=== PATIENT | male | born 1985 | race Hispanic/Latino ===

== ENCOUNTER 2019-03-21 20:32 | Emergency (ER) | payer SELFPAY ==
[2019-03-21 21:41] LABS: Basophils % 1.3 % (0-1.3); Eosinophils % 3.6 % (0-4.4); Hematocrit 45.8 % (39.6-49.0); Lymphocytes % 47.8 % (15.3-44.8); RBC Red Blood Cell Count 5.08 M/uL (4.33-5.43)
[2019-03-21 22:04] LABS: BUN Blood Urea Nitrogen 12 mg/dL (7-18); Bicarbonate 34 mmol/L (21-32); Glucose Level 98 mg/dL (74-106); Potassium 3.7 mmol/L (3.5-5.1); Sodium Level 142 mmol/L (136-145); Troponin (Emerg Dept Use Only) < 0.02 ng/mL (0.0-0.045)
--- NOTE | 2019-03-21 22:58 | ER ---
Nurse's Notes [facility] Name: Erwin Tolentino Jr Age: 33 yrs Sex: Male : 1985 Arrival Date: 03/21/2019 Time: 20:34 Bed 24 Private MD: Diagnosis: Chest pain, unspecified Presentation: 03/21 20:40 Presenting complaint: Patient states: I had a real bad headache and went on a walk, la1 when I came back I felt a pinch in my chest and then my left arm started feeling numb and tingly. Pt reports his arm feels like it is coming back from being numb like after you fell asleep on it and wake up. Denies chest pain. Transition of care: patient was not received from another setting of care. Onset of symptoms was March 21, 2019. Risk Assessment: Do you want to hurt yourself or someone else? Patient reports no desire to harm self or others. Initial Sepsis Screen: Does the patient meet any 2 criteria? No. Patient's initial sepsis screen is negative. Does the patient have a suspected source of infection? No. Patient's initial sepsis screen is negative. Care prior to arrival: None. 20:40 Method Of Arrival: Ambulatory la1 20:40 Acuity: BHAVIK 3 la1 Historical: - Allergies: 20:42 No Known Allergies; la1 - PMHx: 20:42 None; la1 - Immunization history:: Adult Immunizations up to date. - Social history:: Smoking status: Patient/guardian denies using tobacco. - Ebola Screening: : No symptoms or risks identified at this time. Screenin:28 Abuse screen: Denies threats or abuse. Denies injuries from another. Nutritional ca1 screening: No deficits noted. Tuberculosis screening: No symptoms or risk factors identified. Fall Risk IV access (20 points). Assessment: 21:10 General: Appears comfortable, well groomed, Behavior is calm, cooperative. Pain:. cr4 Neuro: Level of Consciousness is awake, alert, obeys commands, Oriented to person, place, time, situation, Appropriate for age Entertainment Reporter are equal bilaterally Moves all extremities. Gait is steady, Speech is normal, Pupils are PERRLA, Reports headache frontal area, since 1500 Denies weakness blurred vision dizziness, numbness. Neuro: Reports reported having numbness to left arm that stopped about 20 minutes ago.. Cardiovascular: Reports Denies chest pain, Heart tones S1 S2 Capillary refill < 3 seconds Patient's skin is warm and dry. Pulses are all present. Edema is absent. Rhythm is regular Chest pain reported chesp pain earlier today that radiated to left chest and radiated to left arm.. Respiratory: Airway is patent Trachea midline Respiratory effort is even, unlabored, Respiratory pattern is regular, Breath sounds are diminished bilaterally. GI: Patient currently denies nausea, vomiting. : Denies burning with urination. EENT: No deficits noted. Derm: No deficits noted. 22:28 Pain: Pain does not radiate. Pain began around 1500 today. ca1 22:29 Reassessment: Patient appears in no apparent distress at this time. Patient and/or ca1 family updated on plan of care and expected duration. Pain level reassessed. Patient is alert, oriented x 3, equal unlabored respirations, skin warm/dry/pink. 23:23 Reassessment: Patient appears in no apparent distress at this time. Patient is alert, ca1 oriented x 3, equal unlabored respirations, skin warm/dry/pink. Patient states feeling better. Vital Signs: 20:42 BP 150 / 98; Pulse 69; Resp 16; Temp 97.5; Pulse Ox 98% on R/A; Weight 93.89 kg; Height la1 5 ft. 9 in. (175.26 cm); 22:29 BP 134 / 96; Pulse 65; Resp 16 S; Pulse Ox 100% on R/A; ca1 23:23 BP 130 / 95; Pulse 68; Resp 17 S; Pulse Ox 98% on R/A; ca1 20:42 Body Mass Index 30.57 (93.89 kg, 175.26 cm) la1 ED Course: 20:34 Patient arrived in ED. do 20:40 Arm band placed on left wrist. EKG completed in triage. Results shown to MD. la1 20:41 Triage completed. la1 21:10 Jose Negron MD is Attending Physician. gs 21:32 XRAY Chest (1 view) In Process Unspecified. EDMS 21:32 Initial lab(s) drawn, by me, sent to lab. Inserted saline lock: 20 gauge in right lt1 antecubital area, using aseptic technique. 21:33 Basic Metabolic Panel Sent. lt1 21:33 CBC with Diff Sent. lt1 21:33 Troponin (emerg Dept Use Only) Sent. lt1 22:28 Delmy Combs, RN is Primary Nurse. ca1 22:28 Patient has correct armband on for positive identification. tooler on. Pulse ca1 ox on. NIBP on. Warm blanket given. 22:28 No provider procedures requiring assistance completed. Patient maintains SpO2 ca1 saturation greater than 95% on room air. 22:58 Nida Calvin DO is Referral Physician. gs 23:24 IV discontinued, intact, bleeding controlled, No redness/swelling at site. Pressure ca1 dressing applied. Administered Medications: No medications were administered Outcome: :58 Discharge ordered by MD. 23:24 Discharged to home ambulatory. ca1 23:24 Condition: stable 23:24 Discharge instructions given to patient, Instructed on discharge instructions, follow up and referral plans. Demonstrated understanding of instructions, follow-up care. 23:24 Patient left the ED. ca1 Signatures: Dispatcher [employer] EDMS Renetta Dennis RN RN cr4 Jericho Lemon RN RN susannah1 María Cage Gregory, MD MD Delmy Combs, RN RN Zainab Van lt1 Corrections: (The following items were deleted from the chart) 22:29 22:28 Pain: Pain began ca1 ca1
--- NOTE | 2019-03-21 22:59 | EDPHYS ---
Physician Documentation [facility] Name: Erwin Tolentino Jr Age: 33 yrs Sex: Male : 1985 Arrival Date: 03/21/2019 Time: 20:34 Bed 24 Private MD: ED Physician Jose Negron HPI: 03/21 22:51 This 33 yrs old Male presents to ER via Ambulatory with complaints of Chest gs Pain. 22:51 The patient or guardian reports chest pain that is located primarily in the anterior gs chest wall. The pain does not radiate. Associated signs and symptoms: Pertinent negatives: shortness of breath. The chest pain is described as a heaviness. Duration: The patient or guardian reports a single episode, that is now resolved. Modifying factors: The symptoms are alleviated by nothing. the symptoms are aggravated by nothing. Severity of pain: At its worst the pain was moderate in the emergency department the pain has resolved. The patient has experienced similar episodes in the past, a few times. SAYS EARLIER IN THE AFTERNOON STARTED TO GET A HEADACHE WAS RELIEVED WITH ANALGESICS. LATER STARTED WITH CHEST PAIN TINGLING IN ARM SOME CHANGE WITH MOVEMENT. Historical: - Allergies: 20:42 No Known Allergies; la1 - PMHx: 20:42 None; la1 - Immunization history:: Adult Immunizations up to date. - Social history:: Smoking status: Patient/guardian denies using tobacco. - Ebola Screening: : No symptoms or risks identified at this time. ROS: 22:51 All other systems are negative. gs Exam: 22:51 Head/Face: Normocephalic, atraumatic. Eyes: Pupils equal round and reactive to light, gs extra-ocular motions intact. Lids and lashes normal. Conjunctiva and sclera are non-icteric and not injected. Cornea within normal limits. Periorbital areas with no swelling, redness, or edema. ENT: Nares patent. No nasal discharge, no septal abnormalities noted. Tympanic membranes are normal and external auditory canals are clear. Oropharynx with no redness, swelling, or masses, exudates, or evidence of obstruction, uvula midline. Mucous membranes moist. Neck: Trachea midline, no thyromegaly or masses palpated, and no cervical lymphadenopathy. Supple, full range of motion without nuchal rigidity, or vertebral point tenderness. No Meningismus. Chest/axilla: Normal chest wall appearance and motion. Nontender with no deformity. No lesions are appreciated. Cardiovascular: Regular rate and rhythm with a normal S1 and S2. No gallops, murmurs, or rubs. Normal PMI, no JVD. No pulse deficits. Respiratory: Lungs have equal breath sounds bilaterally, clear to auscultation and percussion. No rales, rhonchi or wheezes noted. No increased work of breathing, no retractions or nasal flaring. Abdomen/GI: Soft, non-tender, with normal bowel sounds. No distension or tympany. No guarding or rebound. No evidence of tenderness throughout. Back: No spinal tenderness. No costovertebral tenderness. Full range of motion. Skin: Warm, dry with normal turgor. Normal color with no rashes, no lesions, and no evidence of cellulitis. MS/ Extremity: Pulses equal, no cyanosis. Neurovascular intact. Full, normal range of motion. Neuro: Awake and alert, GCS 15, oriented to person, place, time, and situation. Cranial nerves II-XII grossly intact. Motor strength 5/5 in all extremities. Sensory grossly intact. Cerebellar exam normal. Normal gait. 22:51 Constitutional: The patient appears alert, awake. 22:51 ECG was reviewed by the Attending Physician. Vital Signs: 20:42 BP 150 / 98; Pulse 69; Resp 16; Temp 97.5; Pulse Ox 98% on R/A; Weight 93.89 kg; Height la1 5 ft. 9 in. (175.26 cm); 22:29 BP 134 / 96; Pulse 65; Resp 16 S; Pulse Ox 100% on R/A; ca1 23:23 BP 130 / 95; Pulse 68; Resp 17 S; Pulse Ox 98% on R/A; ca1 20:42 Body Mass Index 30.57 (93.89 kg, 175.26 cm) la1 MDM: 21:15 Patient medically screened. gs 22:51 Differential diagnosis: abnormal EKG, coronary artery disease chest wall pain. Data gs reviewed: vital signs, nurses notes, lab test result(s), EKG, radiologic studies. Counseling: I had a detailed discussion with the patient and/or guardian regarding: the presence of at least one elevated blood pressure reading (>120/80) during this emergency department visit, the need for outpatient follow up. Response to treatment: the patient's symptoms have markedly improved after treatment, the patient's symptoms have resolved after treatment, the patient's pain is gone, the patient's condition has returned to base line. Special discussion: I have referred the patient to see his PCP for further evaluation of high blood pressure. 03/21 21:15 Order name: Basic Metabolic Panel 07 21:15 Order name: CBC with Diff 03/21 21:15 Order name: Troponin (emerg Dept Use Only) 03/21 21:16 Order name: Basic Metabolic Panel; Complete Time: 22:44 EDMS 03/21 21:16 Order name: CBC with Automated Diff; Complete Time: 22:44 EDMS 03/21 21:16 Order name: Troponin (Emerg Dept Use Only); Complete Time: 22:44 EDMS 03/21 21:15 Order name: XRAY Chest (1 view) 07 21:15 Order name: EKG; Complete Time: 21:16 03/21 21:15 Order name: Cardiac monitoring; Complete Time: 21:31 03/21 21:15 Order name: EKG - Nurse/Tech; Complete Time: 21:24 07 21:15 Order name: IV Saline Lock; Complete Time: 21:32 03/21 21:15 Order name: Labs collected and sent; Complete Time: 21:32 03/21 21:15 Order name: O2 Per Protocol; Complete Time: 21:32 03/21 21:15 Order name: O2 Sat Monitoring; Complete Time: 21:32 gs EC:51 Rate is 66 beats/min. Rhythm is regular. TN interval is normal. QRS interval is normal. gs QT interval is normal. T waves are Normal. No ST changes noted. Clinical impression: Normal ECG. Interpreted by me. Administered Medications: No medications were administered Disposition: 03/21/19 22:58 Discharged to Home. Impression: Chest pain, unspecified. - Condition is Stable. - Discharge Instructions: Nonspecific Chest Pain, Managing Your Hypertension. - Medication Reconciliation Form, Thank You Letter, Antibiotic Education, Prescription Opioid Use form. - Follow up: Private Physician; When: 2 - 3 days; Reason: Re-evaluation by your physician. Follow up: Calvin, Kamla-Paresh, DO; When: 2 - 3 days; Reason: Re-evaluation by your physician. Signatures: Dispatcher [employer] EDMS Jericho Lemon RN RN la1 Jose Negron MD MD gs Garret, Delmy RN RN ca1 Corrections: (The following items were deleted from the chart) 22:58 22:58 03/21/2019 22:58 Discharged to Home. Impression: Chest pain, unspecified. gs Condition is Stable. Forms are Medication Reconciliation Form, Thank You Letter, Antibiotic Education, Prescription Opioid Use. Follow up: Private Physician; When: 2 - 3 days; Reason: Re-evaluation by your physician. gs 23:24 22:58 03/21/2019 22:58 Discharged to Home. Impression: Chest pain, unspecified. ca1 Condition is Stable. Discharge Instructions: Nonspecific Chest Pain, Managing Your Hypertension. Forms are Medication Reconciliation Form, Thank You Letter, Antibiotic Education, Prescription Opioid Use. Follow up: Private Physician; When: 2 - 3 days; Reason: Re-evaluation by your physician. Follow up: Nida Calvin; When: 2 - 3 days; Reason: Re-evaluation by your physician. gs
--- NOTE | 2019-03-22 09:57 | EKG ---
Test Date: 2019-03-21 Test Time: 20:39:54 Staff Mechanical Engineer: LA MEASUREMENT RESULTS: Intervals: Rate: 66 TN: 128 QRSD: 84 QT: 396 QTc: 415 [place]: P: 38 TN: 128 QRS: 21 T: 32 INTERPRETIVE STATEMENTS: Normal sinus rhythm Normal ECG No previous ECG available for comparison Electronically Signed On 03-22-19 09:56:45 CDT by Connor Judd
--- NOTE | 2019-03-22 12:14 | RAD REPORT ---
EXAM DESCRIPTION: RAD - Chest Single View - 03/21/2019 9:34 pm CLINICAL HISTORY: CHEST PAIN Chest pain. COMPARISON: <Comparisons> FINDINGS: Portable technique limits examination quality. The lungs are grossly clear. The heart is normal in size. No displaced fractures. IMPRESSION: No acute intrathoracic process suspected.
== END 2019-03-21 23:24 | disposition home or self-care (01) ==
LOC: ER 20:32
DX: R07.9 Chest pain, unspecified (principal)
CPT/HCPCS: 36415; 71045; 80048; 84484; 85025; 93005; 99285

== ENCOUNTER 2021-02-10 11:54 | Emergency (ER) | payer SELFPAY ==
--- OUTSIDE RECORDS SUMMARY | 2021-02-10 11:57 | XMS REPORT | Continuity of Care Document ---
:1985 Author Organization [facility] t Address [address] [place] [address] Care Team Providers Name Role Phone Lab, Fam Pob I Attending Clinician Unavailable Doctor Unassigned, Name Attending Clinician Unavailable Problems This patient has no known problems. Allergies, Adverse Reactions, Alerts This patient has no known allergies or adverse reactions. Medications This patient has no known medications. Procedures This patient has no known procedures. Encounters Start End Encounter Admission Attending Care Care Encounter Source Date/Time Date/Time Type Type Clinicians Facility Department ID 2021-02-03 2021-02-03 Laboratory Lab, [facility] [id number] 17:01:56 17:21:56 Only Fam Pob I Health [id number] [place] [id number] [facility] [id number] [address] 2021-02-03 2021-02-03 Orders Doctor VITOR [id number] 00:00:00 00:00:00 Only UnassignedEFE [id number] [place] [facility] [id number] Results This patient has no known results.
--- NOTE | 2021-02-10 13:21 | RAD REPORT ---
EXAM DESCRIPTION: RAD - Chest Single View - 02/10/2021 1:09 pm CLINICAL HISTORY: Congestion;Cough Chest pain. COMPARISON: Chest Single View dated 03/21/2019 FINDINGS: Portable technique limits examination quality. Mild bilateral interstitial lung opacities are present suspicious for bronchitis/infection. The heart is normal in size. No displaced fractures.
[2021-02-10 13:49] LABS: Absolute Lymphocytes (CBC) 1.1 K/uL (0.7-4.9); Basophils % 0.7 % (0-1.3); Lymphocytes % 27.6 % (15.3-44.8); MPV 8.4 fL (7.6-11.3); RBC Red Blood Cell Count 4.88 M/uL (4.33-5.43)
[2021-02-10] MEDS ORDERED: METHYLPREDNISOLONE 125 MG INJ ONE (14:24)
[2021-02-10] MEDS ORDERED: ALBUTEROL INHALER 60 PUFF/8 GM IH ONE (14:25)
[2021-02-10 14:32] LABS: Potassium 4.1 mmol/L (3.5-5.1)
[2021-02-10] MEDS ORDERED: BENZONATATE 100 MG CAP PO ONE (14:56)
[2021-02-10] MEDS ORDERED: AZITHROMYCIN 250 MG TAB ONE (14:57)
[2021-02-10] MEDS ORDERED: CEFTRIAXONE/SWI 1gm 1 GM/10 ML SYR ONE (14:57)
--- NOTE | 2021-02-10 15:59 | RAD REPORT ---
EXAM DESCRIPTION: CT - Chest For Pe Angio - 02/10/2021 3:47 pm CLINICAL HISTORY: Chest pain. r/o pe,covid positive pt COMPARISON: No comparisons TECHNIQUE: CT angiogram of the pulmonary arteries was performed with MIP. All CT scans are performed using dose optimization technique as appropriate and may include automated exposure control or mA/KV adjustment according to patient size. FINDINGS: No evidence of pulmonary thromboembolism. No acute aortic finding demonstrated. Moderate areas of alveolar and interstitial lung opacities bilaterally, greatest in the lower lobes n oted. No significant pericardial or pleural fluid. No concerning bony finding. IMPRESSION: No evidence of pulmonary thromboembolism. Moderate areas of alveolar and interstitial lung opacities bilaterally, greatest in the lower lobes. This is compatible with underlying COVID-19 infection.
--- NOTE | 2021-02-10 16:09 | ER ---
Nurse's Notes [facility] Name: Erwin Tolentino Jr Age: 35 yrs Sex: Male : 1985 Arrival Date: 02/10/2021 Time: 11:55 Bed 4 Private MD: Diagnosis: COVID Pneumonia Presentation: 02/10 12:04 Chief complaint: Patient states: Slight cough x 1 week then 4 days ago noticed trace jl7 blood in sputum, reports mild SOB and chest is sore from coughing. Coronavirus screen: Client denies travel out of the [place] in the last 14 days. congestion, cough unrelated to allergies, Client presents with at least one sign or symptom that may indicate coronavirus-19. Standard/surgical mask placed on the client. Provider contacted for isolation considerations. Ebola Screen: No symptoms or risks identified at this time. Initial Sepsis Screen: Does the patient meet any 2 criteria? No. Patient's initial sepsis screen is negative. Does the patient have a suspected source of infection? No. Patient's initial sepsis screen is negative. Risk Assessment: Do you want to hurt yourself or someone else? Patient reports no desire to harm self or others. Onset of symptoms was February 07, 2021. Care prior to arrival: None. 12:04 Method Of Arrival: Ambulatory [facility] 12:04 Acuity: BHAVIK 3 jl7 Historical: - Allergies: 12:06 No Known Allergies; jl7 - Home Meds: 12:06 None [Active]; jl7 - PMHx: 12:06 None; jl7 - PSHx: 12:06 None; jl7 - Immunization history:: Adult Immunizations unknown. - Social history:: Smoking status: Patient denies any tobacco usage or history of. Screenin:36 Abuse screen: Denies threats or abuse. Nutritional screening: No deficits noted. em Tuberculosis screening: No symptoms or risk factors identified. Fall Risk None identified. Assessment: 12:32 General: Appears in no apparent distress. comfortable, Behavior is calm, cooperative. em Pain: Denies pain. Neuro: Level of Consciousness is awake, alert, obeys commands, Oriented to person, place, time, situation, Appropriate for age. Cardiovascular: Reports shortness of breath, Denies chest pain, Capillary refill < 3 seconds Patient's skin is warm and dry. Rhythm is regular. Respiratory: Reports shortness of breath at rest cough that is productive, Airway is patent Respiratory effort is even, unlabored, Respiratory pattern is regular, symmetrical, Breath sounds are clear bilaterally. GI: Abdomen is flat, Reports diarrhea, Patient currently denies nausea, vomiting. Derm: Skin is intact, is healthy with good turgor, Skin is pink, warm \T\ dry. Musculoskeletal: Capillary refill < 3 seconds, Range of motion: intact in all extremities. 14:21 Reassessment: pts sister updated via phone with pts permission. tr6 14:57 Reassessment: Patient appears in no apparent distress at this time. Patient and/or em family updated on plan of care and expected duration. Pain level reassessed. Patient is alert, oriented x 3, equal unlabored respirations, skin warm/dry/pink. 15:41 Reassessment: pt transferred to CT via stretcher. tr6 15:51 Reassessment: returned from CT via wheelchair. em 16:02 Reassessment: reports cough is not getting better, Dr. Ramos notified, received VO em for 5 mg Tussionex PO x 1. 16:35 Reassessment: Patient appears in no apparent distress at this time. Patient and/or em family updated on plan of care and expected duration. Pain level reassessed. Patient is alert, oriented x 3, equal unlabored respirations, skin warm/dry/pink. Patient states feeling better. Vital Signs: 09:00 BP 122 / 52; Pulse 73; Resp 20; Pulse Ox 100% on R/A; tr6 10:00 BP 141 / 66; Pulse 75; Resp 20; Pulse Ox 100% on R/A; tr6 12:04 BP 127 / 74; Pulse 105; Resp 19; Temp 98.8; Pulse Ox 95% on R/A; Weight 94.35 kg; jl7 Height 5 ft. 9 in. (175.26 cm); Pain 0/10; 14:42 BP 117 / 77; Pulse 104; Resp 20; Pulse Ox 95% on R/A; em 16:15 BP 124 / 68; Pulse 98; Resp 20; Pulse Ox 94% on R/A; em 12:04 Body Mass Index 30.72 (94.35 kg, 175.26 cm) [facility] 14:42 after ambulating about 40 feet em ED Course: 11:55 Patient arrived in ED. am2 12:06 Triage completed. jl7 12:06 Arm band placed on right wrist. jl7 12:12 Michele Ramos MD is Attending Physician. kdr 12:28 Damon Page, RN is Primary Nurse. em 12:36 Patient has correct armband on for positive identification. Bed in low position. Call em light in reach. Pulse ox on. NIBP on. 12:39 Inserted saline lock: 18 gauge in left hand, using aseptic technique. Blood collected. tr6 13:09 CXR XRAY In Process Unspecified. EDMS 15:47 CT Chest For PE Angio In Process Unspecified. EDMS 16:45 No provider procedures requiring assistance completed. IV discontinued, intact, em bleeding controlled, No redness/swelling at site. Pressure dressing applied. Administered Medications: 14:05 Drug: Albuterol HFA Inhaler 2 puffs Route: Inhalation; em 14:55 Follow up: Response: No adverse reaction; Marked relief of symptoms em 14:07 Drug: SOLU-Medrol (methylPrednisoLONE) 125 mg Route: IVP; Site: left hand; em 14:55 Follow up: Response: No adverse reaction em 14:39 Drug: Rocephin - (cefTRIAXone) 1 grams Route: IVPB; Infused Over: 30 mins; Site: left em hand; 16:17 Follow up: Response: No adverse reaction; IV Status: Completed infusion; IV Intake: 10mlem 14:49 Drug: Tessalon Perle (benzonatate) 200 mg Route: PO; em 16:17 Follow up: Response: No adverse reaction em 14:49 Drug: Zithromax (azithromycin) 500 mg Route: PO; em 16:17 Follow up: Response: No adverse reaction em 16:13 Drug: Tussionex Pennkinetic ER (chlorpheniramine-hydrocodone) 5 ml Route: PO; em 16:30 Follow up: Response: No adverse reaction; Marked relief of symptoms em Intake: 16:17 IV: 10ml; Total: 10ml. em Outcome: 16:09 Discharge ordered by . kdr 16:45 Discharged to home ambulatory. em 16:45 Condition: stable 16:45 Discharge instructions given to patient, Instructed on discharge instructions, follow up and referral plans. medication usage, Demonstrated understanding of instructions, follow-up care, medications, Prescriptions given X 2. 16:46 Patient left the ED. em Signatures: Dispatcher [employer] Michele Caruso MD MD kdr Munoz, Edgar RN RN em Kailey Hutchison RN RN jl7 Olga Lidia Jacobs Tiffany, RN RN tr6
--- NOTE | 2021-02-10 16:09 | EDPHYS ---
Physician Documentation [facility] Name: Erwin Tolentino Jr Age: 35 yrs Sex: Male : 1985 Arrival Date: 02/10/2021 Time: 11:55 Bed 4 Private MD: ED Physician Michele Ramos HPI: 02/10 16:51 This 35 yrs old Male presents to ER via Ambulatory with complaints of kdr Breathing Difficulty, Productive Cough. 16:51 The patient has shortness of breath at rest, with light activity. Onset: The kdr symptoms/episode began/occurred gradually, 1 week(s) ago. Duration: The symptoms are intermittent, with no pattern. The patient's shortness of breath is aggravated by coughing, exertion, light activity, talking, is alleviated by nothing. Associated signs and symptoms: Pertinent positives: productive cough, fever. Severity of symptoms: At their worst the symptoms were moderate in the emergency department the symptoms are unchanged. The patient has not experienced similar symptoms in the past. The patient has not recently seen a physician, The patient has been recently seen by a physician: The patient was recently diagnosed with COVID. Historical: - Allergies: 12:06 No Known Allergies; jl7 - Home Meds: 12:06 None [Active]; jl7 - PMHx: 12:06 None; jl7 - PSHx: 12:06 None; jl7 - Immunization history:: Adult Immunizations unknown. - Social history:: Smoking status: Patient denies any tobacco usage or history of. ROS: 16:51 Constitutional: Negative for chills, and weight loss - has had low grade fever Eyes: kdr Negative for injury, pain, redness, and discharge, Neck: Negative for injury, pain, and swelling, Cardiovascular: Negative for chest pain, palpitations, and edema, Abdomen/GI: Negative for abdominal pain, nausea, vomiting, diarrhea, and constipation, Back: Negative for injury and pain, : Negative for injury, bleeding, discharge, and swelling, MS/Extremity: Negative for injury and deformity, Skin: Negative for injury, rash, and discoloration, Neuro: Negative for headache, weakness, numbness, tingling, and seizure activity. Psych: Negative for depression, anxiety, suicide ideation, homicidal ideation, and hallucinations, Allergy/Immunology: Negative for hives, rash, and allergies, Endocrine: Negative for neck swelling, polydipsia, polyuria, polyphagia, and marked weight changes, Hematologic/Lymphatic: Negative for swollen nodes, abnormal bleeding, and unusual bruising. 16:51 Respiratory: Positive for cough, with rust-colored sputum, dyspnea on exertion, shortness of breath, on exertion. wheezing. Exam: 16:51 Constitutional: This is a well developed, well nourished patient who is awake, alert, kdr and in no acute distress. Head/Face: Normocephalic, atraumatic. Eyes: Pupils equal round and reactive to light, extra-ocular motions intact. Lids and lashes normal. Conjunctiva and sclera are non-icteric and not injected. Cornea within normal limits. Periorbital areas with no swelling, redness, or edema. Neck: Trachea midline, no thyromegaly or masses palpated, and no cervical lymphadenopathy. Supple, full range of motion without nuchal rigidity, or vertebral point tenderness. No Meningismus. Chest/axilla: Normal chest wall appearance and motion. Nontender with no deformity. No lesions are appreciated. Cardiovascular: Regular rate and rhythm with a normal S1 and S2. No gallops, murmurs, or rubs. Normal PMI, no JVD. No pulse deficits. Abdomen/GI: Soft, non-tender, with normal bowel sounds. No distension or tympany. No guarding or rebound. No evidence of tenderness throughout. Back: No spinal tenderness. No costovertebral tenderness. Full range of motion. Skin: Warm, dry with normal turgor. Normal color with no rashes, no lesions, and no evidence of cellulitis. MS/ Extremity: Pulses equal, no cyanosis. Neurovascular intact. Full, normal range of motion. Neuro: Awake and alert, GCS 15, oriented to person, place, time, and situation. Cranial nerves II-XII grossly intact. Motor strength 5/5 in all extremities. Sensory grossly intact. Cerebellar exam normal. Normal gait. Psych: Awake, alert, with orientation to person, place and time. Behavior, mood, and affect are within normal limits. 16:51 Respiratory: mild respiratory distress is noted, Respirations: normal, Breath sounds: wheezing: that is mild, is heard diffusely. Vital Signs: 09:00 BP 122 / 52; Pulse 73; Resp 20; Pulse Ox 100% on R/A; tr6 10:00 BP 141 / 66; Pulse 75; Resp 20; Pulse Ox 100% on R/A; tr6 12:04 BP 127 / 74; Pulse 105; Resp 19; Temp 98.8; Pulse Ox 95% on R/A; Weight 94.35 kg; jl7 Height 5 ft. 9 in. (175.26 cm); Pain 0/10; 14:42 BP 117 / 77; Pulse 104; Resp 20; Pulse Ox 95% on R/A; em 16:15 BP 124 / 68; Pulse 98; Resp 20; Pulse Ox 94% on R/A; em 12:04 Body Mass Index 30.72 (94.35 kg, 175.26 cm) jl7 14:42 after ambulating about 40 feet em MDM: 16:09 Patient medically screened. kdr 16:51 Differential diagnosis: asthma, Bronchitis Chronic Obstructive Pulmonary Disease kdr pneumonia, pulmonary edema, Pulmonary Embolism reactive airway disease, Sepsis. Antibiotic administration: The patient is discharged and will get outpatient antibiotics. Data reviewed: vital signs, nurses notes, lab test result(s), radiologic studies. Counseling: I had a detailed discussion with the patient and/or guardian regarding: the historical points, exam findings, and any diagnostic results supporting the discharge/admit diagnosis, lab results. Response to treatment: the patient's symptoms have mildly improved after treatment. Transition of care:. ED course: The patient was stable with the interventions given and was happy with the care provided and the plan for discharge and follow-up. 02/10 12:20 Order name: CBC with Diff; Complete Time: 14:08 kdr 02/10 12:20 Order name: Chem 7; Complete Time: 15:29 kdr 02/10 12:20 Order name: CXR XRAY; Complete Time: 14:08 kdr 02/10 14:11 Order name: DD; Complete Time: 15:29 kdr 02/10 13:12 Order name: Labs - recollect needed: recollect all labs; Complete Time: 13:42 bd 02/10 15:15 Order name: CT Chest For PE Angio; Complete Time: 16:06 bd Administered Medications: 14:05 Drug: Albuterol HFA Inhaler 2 puffs Route: Inhalation; em 14:55 Follow up: Response: No adverse reaction; Marked relief of symptoms em 14:07 Drug: SOLU-Medrol (methylPrednisoLONE) 125 mg Route: IVP; Site: left hand; em 14:55 Follow up: Response: No adverse reaction em 14:39 Drug: Rocephin - (cefTRIAXone) 1 grams Route: IVPB; Infused Over: 30 mins; Site: left em hand; 16:17 Follow up: Response: No adverse reaction; IV Status: Completed infusion; IV Intake: 10mlem 14:49 Drug: Tessalon Perle (benzonatate) 200 mg Route: PO; em 16:17 Follow up: Response: No adverse reaction em 14:49 Drug: Zithromax (azithromycin) 500 mg Route: PO; em 16:17 Follow up: Response: No adverse reaction em 16:13 Drug: Tussionex Pennkinetic ER (chlorpheniramine-hydrocodone) 5 ml Route: PO; em 16:30 Follow up: Response: No adverse reaction; Marked relief of symptoms em Disposition: 02/10/21 16:09 Discharged to Home. Impression: COVID Pneumonia. - Condition is Stable. - Discharge Instructions: Community-Acquired Pneumonia, Adult, [id number], COVID-19. - Prescriptions for Tussionex Pennkinetic ER 8- 10 mg/5 mL Oral Suspension, Sust. Release 12 hr - take 5 milliliter by ORAL route every 12 hours As needed; 120 milliliter. Albuterol Sulfate 90 mcg/actuation - inhale 1-2 puff by INHALATION route every 4-6 hours; 1 Inhaler. - Medication Reconciliation Form, Thank You Letter, Prescription Opioid Use form. - Follow up: Private Physician; When: 2 - 3 days; Reason: If symptoms return, Further diagnostic work-up, Recheck today's complaints, Continuance of care, Re-evaluation by your physician. - Problem is an ongoing problem. - Symptoms have improved. Signatures: Dispatcher [employer] EDMS Ellie Fuller Kevin, MD MD kdr Munoz, Edgar, RN RN em Kailey Hutchison RN RN jl7 Corrections: (The following items were deleted from the chart) 12:48 12:21 CORONAVIRUS+MR.LAB.BRZ ordered. EDMS EDMS 12:48 12:21 Influenza Screen (A \T\ B)+BA.LAB.BRZ ordered. EDMS EDDE 16:46 16:09 02/10/2021 16:09 Discharged to Home. Impression: COVID Pneumonia. Condition is em Stable. Forms are Medication Reconciliation Form, Thank You Letter, Antibiotic Education, Prescription Opioid Use. Follow up: Private Physician; When: 2 - 3 days; Reason: If symptoms return, Further diagnostic work-up, Recheck today's complaints, Continuance of care, Re-evaluation by your physician. Problem is an ongoing problem. Symptoms have improved. kdr
[2021-02-10] MEDS ORDERED: HYDROCODONE/CHLORPHEN 5 ML/OSYR ONE (16:30)
[2021-02-10 16:53] VITALS: TEMP 98.8
[2021-02-10 16:56] VITALS: BP 124/68; O2SAT 94
== END 2021-02-10 16:46 | disposition home or self-care (01) ==
LOC: ER 11:54
DX: U07.1 COVID-19 (principal); J12.82 Pneumonia due to coronavirus disease 2019
CPT/HCPCS: 36415; 71045; 71275; 80048; 85025; 85379; 96365; 96366; 96375; 99284; J0696; J2930; Q9967

== ENCOUNTER 2021-02-11 23:28 | Inpatient (IN) | payer SELFPAY ==
--- OUTSIDE RECORDS SUMMARY | 2021-02-11 23:32 | XMS REPORT | Continuity of Care Document ---
:1985 Author Organization [facility] t Address [address] Al [address] [place] [id number] Care Team Providers Name Role Phone Lab, [...] Facility Department ID 2021-02-03 2021-02-03 Laboratory Lab, [facility] [id number] 17:01:56 17:21:56 Only Fam [facility] [id number] [place] [id number] essio [phone] [address] 2021-02-03 2021-02-03 Orders Doctor VITOR [id number] 00:00:00 00:00:00 Only UnassignedEFE [id number] [place] [facility] [id number] [phone] [id number] Results This patient has no known results.
[2021-02-12] MEDS ORDERED: NA CHLORIDE 0.9% 1,000 ML ONE (00:16)
[2021-02-12] MEDS ORDERED: ACETAMINOPHEN 500 MG TAB ONE (00:16)
[2021-02-12] MEDS ORDERED: IBUPROFEN 400 MG TAB ONE (00:16)
[2021-02-12 00:45] LABS: Absolute Lymphocytes (CBC) 0.8 K/uL (0.7-4.9); Basophils % 0.2 % (0-1.3); Hematocrit 41.5 % (39.6-49.0); Lymphocytes % 12.6 % (15.3-44.8); MPV 8.3 fL (7.6-11.3); RBC Red Blood Cell Count 4.73 M/uL (4.33-5.43)
[2021-02-12 00:58] LABS: ALT/SGPT 75 U/L (12-78); AST/SGOT 61 U/L (15-37); Albumin 3.3 g/dL (3.4-5.0); Alkaline Phosphatase 55 U/L (45-117); BUN Blood Urea Nitrogen 15 mg/dL (7-18); Bicarbonate 29 mmol/L (21-32); Bilirubin Direct < 0.1 mg/dL (0-0.2); Bilirubin Total 0.3 mg/dL (0.2-1.0); Glucose Level 120 mg/dL (74-106); Lipase 265 U/L (73-393); Magnesium 2.1 mg/dL (1.8-2.4); NT PRO-BNP 29 pg/mL (<125); Protein, Total 7.4 g/dL (6.4-8.2); Sodium Level 139 mmol/L (136-145)
[2021-02-12] MEDS ORDERED: dexAMETHasone 10 MG/ML VIAL ONE (01:41)
[2021-02-12] MEDS ORDERED: AZITHROMYCIN 500 MG INJ IVPB ONE (01:42)
[2021-02-12] MEDS ORDERED: NA CHLORIDE 0.9% 250 ML ONE (01:42)
--- NOTE | 2021-02-12 01:49 | ER ---
Nurse's Notes [facility] Name: Erwin Tolentino Jr Age: 35 yrs Sex: Male : 1985 Arrival Date: 02/11/2021 Time: 23:29 Bed 16 Private MD: Diagnosis: Hypoxemia;Coronavirus infection, unspecified Presentation: 02/11 23:46 Chief complaint: Patient states: he was here yesterday and diagnosed with COVID but now bb he is having more SOB and difficulty breathing. Coronavirus screen: Client reports previous positive COVID test result. Ebola Screen: No symptoms or risks identified at this time. Initial Sepsis Screen: Does the patient meet any 2 criteria? Yes Does the patient have a suspected source of infection? Yes: Productive cough/pneumonia. Risk Assessment: Do you want to hurt yourself or someone else? Patient reports no desire to harm self or others. Onset of symptoms was February 11, 2021. 23:46 Method Of Arrival: Ambulatory bb 23:46 Acuity: BHAVIK 3 bb Historical: - Allergies: 23:48 No Known Allergies; bb - Home Meds: 23:48 None [Active]; bb - PMHx: 23:48 None; bb - PSHx: 23:48 None; bb - Immunization history:: Adult Immunizations up to date. - Social history:: Smoking status: Patient/guardian denies using tobacco, Stopped _ months ago 6. Screenin:52 Abuse screen: Denies threats or abuse. Nutritional screening: No deficits noted. bb Tuberculosis screening: No symptoms or risk factors identified. Fall Risk None identified. Assessment: 23:52 General: Appears uncomfortable, ill, Behavior is calm, cooperative. Pain: Complains of bb pain in chest. Neuro: Level of Consciousness is awake, alert, obeys commands, Oriented to person, place, time, situation. Cardiovascular: Heart tones S1 S2 present Capillary refill < 3 seconds Patient's skin is warm and dry. Rhythm is sinus tachycardia. Respiratory: Airway is patent Respiratory effort is labored, Respiratory pattern is tachypnea Breath sounds are coarse bilaterally. GI: No signs and/or symptoms were reported involving the gastrointestinal system. Derm: Skin is pink, warm \T\ dry. Musculoskeletal: Circulation, motion, and sensation intact. 02/12 00:46 Reassessment: pt is A\T\O x 4, resp labored, tachypnea, IV site intact, patent, with bb fluids infusing awaiting diagnostic results. 01:46 Reassessment: Patient appears in no apparent distress at this time. Patient and/or jb4 family updated on plan of care and expected duration. Pain level reassessed. Patient is alert, oriented x 3, equal unlabored respirations, skin warm/dry/pink. 02:42 Reassessment: Patient appears in no apparent distress at this time. Patient and/or jb4 family updated on plan of care and expected duration. Pain level reassessed. Patient is alert, oriented x 3, equal unlabored respirations, skin warm/dry/pink. Vital Signs: 02/11 23:46 BP 140 / 89; Pulse 122; Resp 26 S; Temp 103.2; Pulse Ox 89% on R/A; Weight 94.35 kg bb (R); Height 5 ft. 9 in. (175.26 cm) (R); Pain 3/10; 02/12 00:47 BP 126 / 63; Pulse 109; Resp 28 S; Temp 100.3(O); Pulse Ox 97% on 2 lpm NC; bb 01:45 BP 122 / 74; Pulse 104; Resp 26; Pulse Ox 97% on 2 lpm NC; jb4 02:45 BP 109 / 72; Pulse 92; Resp 23; Pulse Ox 95% on 2 lpm NC; jb4 02/11 23:46 Body Mass Index 30.72 (94.35 kg, 175.26 cm) ED Course: 02/11 23:29 Patient arrived in ED. ag3 23:36 Haile Coulter MD is Attending Physician. tw4 23:45 Avani Mercado, AUBREE is Primary Nurse. bb 23:48 Triage completed. bb 23:48 Arm band placed on Patient placed in an exam room, on a stretcher, on oxygen, on bb airline mechanic, on pulse oximetry. 23:52 Patient has correct armband on for positive identification. Bed in low position. Call bb light in reach. Side rails up X 1. rasper machine operator on. Pulse ox on. NIBP on. 02/12 00:15 Missed attempt(s): 20 gauge in left antecubital area. Bleeding controlled, band aid bb applied, catheter tip intact. 00:20 Initial lab(s) drawn, by me, sent to lab. First set of blood cultures drawn by me. bb Inserted saline lock: 20 gauge in right antecubital area, using aseptic technique. Blood collected. 00:29 XRAY CXR (1 view) In Process Unspecified. EDMS 00:40 Second set of blood cultures drawn by me. bb 01:17 Report given to Taj García RN. bb 01:36 Primary Nurse role handed off by Avani Mercado RN jb4 01:36 Valente Ashby, AUBREE is Primary Nurse. jb4 01:47 Sean Cueva MD is Hospitalizing Provider. tw4 03:10 No provider procedures requiring assistance completed. Patient admitted, IV remains in jb4 place. Administered Medications: 00:00 Drug: Tylenol 1000 mg Route: PO; bb 00:49 Follow up: Response: Temperature is decreased bb 00:00 Drug: Motrin (ibuprofen) 800 mg Route: PO; bb 00:49 Follow up: Response: Temperature is decreased bb 00:20 Drug: NS 0.9% 1000 ml Route: IV; Rate: 1 bolus; Site: right antecubital; bb 01:34 Drug: Decadron - Dexamethasone 10 mg Route: IVP; Site: right antecubital; jb4 01:34 Drug: AZITHromycin 500 mg Route: IVPB; Infused Over: 1 hrs; Site: right antecubital; jb4 Outcome: 01:49 Decision to Hospitalize by Provider. tw4 03:10 Admitted to ICU accompanied by nurse, via wheelchair, room 5. jb4 03:10 Condition: stable 03:10 Discharge instructions given to patient, Instructed on the need for admit, Demonstrated understanding of instructions. 03:11 Patient left the ED. jb4 Signatures: Dispatcher [employer] EDMS Avani Mercado RN RN bb Bryson, James, RN RN jb4 Haile Coulter MD MD tw4 Kaykay Van 3
--- NOTE | 2021-02-12 01:50 | EDPHYS ---
Physician Documentation [facility] Name: Erwin Tolentino Jr Age: 35 yrs Sex: Male : 1985 Arrival Date: 02/11/2021 Time: 23:29 Bed 16 Private MD: ED Physician Haile Coulter HPI: 02/12 00:53 This 35 yrs old Male presents to ER via Ambulatory with complaints of Cough. tw4 00:53 The patient or guardian reports cough. Onset: The symptoms/episode began/occurred tw4 today. Severity of symptoms: At their worst the symptoms were moderate, in the emergency department the symptoms are unchanged. The patient has not experienced similar symptoms in the past. 00:53 The patient has been recently seen at the [facility] Emergency tw4 Department, yesterday, for similar complaints the patient was told to return for a recheck, diagnosed with covid a week ago. Historical: - Allergies: 02/11 23:48 No Known Allergies; bb - Home Meds: 23:48 None [Active]; bb - PMHx: 23:48 None; bb - PSHx: 23:48 None; bb - Immunization history:: Adult Immunizations up to date. - Social history:: Smoking status: Patient/guardian denies using tobacco, Stopped _ months ago 6. ROS: 02/12 00:53 Constitutional: Negative for fever, chills, and weight loss, Eyes: Negative for injury, tw4 pain, redness, and discharge, Cardiovascular: Negative for chest pain, palpitations, and edema, Abdomen/GI: Negative for abdominal pain, nausea, vomiting, diarrhea, and constipation, Back: Negative for injury and pain, MS/Extremity: Negative for injury and deformity, Skin: Negative for injury, rash, and discoloration. Respiratory: Positive for cough, Negative for dyspnea on exertion, hemoptysis, orthopnea, pleurisy, shortness of breath. Exam: 00:53 Constitutional: This is a well developed, well nourished patient who is awake, alert, tw4 and in no acute distress. Head/Face: Normocephalic, atraumatic. Chest/axilla: Normal chest wall appearance and motion. Nontender with no deformity. No lesions are appreciated. Cardiovascular: Regular rate and rhythm with a normal S1 and S2. No gallops, murmurs, or rubs. Normal PMI, no JVD. No pulse deficits. Respiratory: Lungs have equal breath sounds bilaterally, clear to auscultation and percussion. No rales, rhonchi or wheezes noted. No increased work of breathing, no retractions or nasal flaring. Abdomen/GI: Soft, non-tender, with normal bowel sounds. No distension or tympany. No guarding or rebound. No evidence of tenderness throughout. Back: No spinal tenderness. No costovertebral tenderness. Full range of motion. MS/ Extremity: Pulses equal, no cyanosis. Neurovascular intact. Full, normal range of motion. Neuro: Awake and alert, GCS 15, oriented to person, place, time, and situation. Cranial nerves II-XII grossly intact. Motor strength 5/5 in all extremities. Sensory grossly intact. Cerebellar exam normal. Normal gait. Vital Signs: 02/11 23:46 BP 140 / 89; Pulse 122; Resp 26 S; Temp 103.2; Pulse Ox 89% on R/A; Weight 94.35 kg bb (R); Height 5 ft. 9 in. (175.26 cm) (R); Pain 11/17; 02/12 00:47 BP 126 / 63; Pulse 109; Resp 28 S; Temp 100.3(O); Pulse Ox 97% on 2 lpm NC; bb 01:45 BP 122 / 74; Pulse 104; Resp 26; Pulse Ox 97% on 2 lpm NC; jb4 02:45 BP 109 / 72; Pulse 92; Resp 23; Pulse Ox 95% on 2 lpm NC; jb4 02/11 23:46 Body Mass Index 30.72 (94.35 kg, 175.26 cm) bb MDM: 02/11 23:36 Patient medically screened. tw4 02/12 02:27 Differential Diagnosis: Upper Respiratory Infection Asthma Exacerbation Viral Syndrome tw4 Pneumonia. Data reviewed: vital signs, nurses notes. Data reviewed: lab test result(s), CBC, electrolytes, radiologic studies, plain films. Data interpreted: Pulse oximetry: Interpretation: hypoxia. Plan: O2 by NC applied. Test interpretation: by ED physician or midlevel provider: plain radiologic studies. Counseling: I had a detailed discussion with the patient and/or guardian regarding: the historical points, exam findings, and any diagnostic results supporting the discharge/admit diagnosis, lab results, radiology results. Physician consultation: Sean Cueva MD regarding admission, to the telemetry unit. patient's condition, and will see patient in inpatient room. 02/11 23:48 Order name: Blood Culture Adult (2) [facility] 02/11 23:48 Order name: BMP; Complete Time: 02:26 [facility] 02/12 02:26 Interpretation: Normal except: GLUC 120; GFR 81. [facility] 02/11 23:48 Order name: CBC with Diff; Complete Time: 02:26 02/12 02:26 Interpretation: Normal except: WBC 6.70; LYM% 12.6; GAYLE% 79.9; RDW 12.0. [facility] 02/11 23:48 Order name: Hepatic Function; Complete Time: 02:26 [facility] 02/12 02:26 Interpretation: Normal except: A/G 0.8; GLOB 4.1; ALB 3.3; AST 61. [facility] 02/11 23:48 Order name: Lipase; Complete Time: 02:26 [facility] 02/12 02:26 Interpretation: Within normal limits: LIP 265. 02/11 23:48 Order name: Magnesium; Complete Time: 02:26 [facility] 02/12 02:27 Interpretation: Within normal limits: MG 2.1. [facility] 02/11 23:48 Order name: XRAY CXR (1 view) [facility] 02/11 23:48 Order name: NT PRO-BNP; Complete Time: 02:26 [facility] 02/12 02:27 Interpretation: Within normal limits: NT PRO-BNP 29. 02/12 02:33 Order name: CONS Physician Consult [facility] 02/11 23:48 Order name: Cardiac monitoring; Complete Time: 00:00 [facility] 02/11 23:48 Order name: IV Saline Lock; Complete Time: 00:45 [facility] 02/11 23:48 Order name: Labs collected and sent; Complete Time: 00:45 [facility] 02/11 23:48 Order name: O2 Per Protocol; Complete Time: 00:00 [facility] 02/11 23:48 Order name: O2 Sat Monitoring; Complete Time: 00:00 Administered Medications: 00:00 Drug: Tylenol 1000 mg Route: PO; bb 00:49 Follow up: Response: Temperature is decreased bb 00:00 Drug: Motrin (ibuprofen) 800 mg Route: PO; bb 00:49 Follow up: Response: Temperature is decreased bb 00:20 Drug: NS 0.9% 1000 ml Route: IV; Rate: 1 bolus; Site: right antecubital; bb 01:34 Drug: Decadron - Dexamethasone 10 mg Route: IVP; Site: right antecubital; jb4 01:34 Drug: AZITHromycin 500 mg Route: IVPB; Infused Over: 1 hrs; Site: right antecubital; jb4 Disposition: 02/12/21 01:49 Hospitalization ordered by Sean Cueva for Inpatient Admission. Preliminary diagnosis are Hypoxemia, Coronavirus infection, unspecified. - Bed requested for Intensive Care Unit. - Status is Inpatient Admission. jb4 - Condition is Fair. - Problem is an ongoing problem. - Symptoms have worsened. Signatures: Dispatcher [employer] EDMS Linette Gould RN RN mw Ballard, Brenda, RN RN bb Bryson, James, RN RN jb4 Haile Coulter MD MD tw4 Corrections: (The following items were deleted from the chart) 02:37 01:49 Hospitalization Ordered by Sean Cueva MD for Inpatient Admission. Preliminary mw diagnosis is Hypoxemia; Coronavirus infection, unspecified. Bed requested for Telemetry/MedSurg (Inpatient). Status is Inpatient Admission. Condition is Fair. Problem is an ongoing problem. Symptoms have worsened. tw4 03:11 02:37 02/12/2021 01:49 Hospitalization Ordered by Sean Cueva MD for Inpatient jb4 Admission. Preliminary diagnosis is Hypoxemia; Coronavirus infection, unspecified. Bed requested for Intensive Care Unit. Status is Inpatient Admission. Condition is Fair. Problem is an ongoing problem. Symptoms have worsened. mw
--- NOTE | 2021-02-12 03:23 | P.HP ---
Certification for Inpatient Patient admitted to: Inpatient With expected LOS: >2 Midnights Patient will require the following post-hospital care: None Practitioner: I am a practitioner with admitting privileges, knowledge of patient current condition, hospital course, and medical plan of care. Services: Services provided to patient in accordance with Admission requirements found in Title 42 Section 412.3 of the Code of Federal Regulations <Cesar Baez - Last Filed: 02/12/21 03:18> Patient History Date of Service: 02/12/21 Reason for admission: covid pneumonia History of Present Illness: Mr. Tolentino is a 35 yo M who presents with SOB and TRAN worsening since Sunday. His symptoms started 02/02 and he was diagnosed with COVID 02/03. Reports cough, sputum production, pleuritic pain, and diarrhea. Denies N/V. Former smoker, quit 6 months ago. - Past Medical/Surgical History Diabetic: No Past Medical History: Patient denies medical history Past Surgical History: Patient denies surgical history - Family History Mother -: Hypertension - Social History Smoking Status: Former smoker Alcohol use: Yes CD- Drugs: No Caffeine use: No Place of Residence: Home <Yas Baezemmett Mccormick - Last Filed: 02/12/21 03:18> Date of Service: 02/12/21 <Sean Cueva - Last Filed: 02/13/21 12:03> Allergies No Known Allergies Allergy (Unverified 02/12/21 03:46) Home Medications: NK [No Home Meds] 02/12/21 Review of Systems 10-point ROS is otherwise unremarkable General: Fever, As per HPI Respiratory: Cough, Shortness of Breath, SOB with Excertion, Pleuritic Pain, Sputum Gastrointestinal: Diarrhea <NestorCesar S - Last Filed: 02/12/21 03:18> Physical Examination - Vital Signs Temperature: 103.2 F Blood Pressure: 140/89 Pulse: 122 Respirations: 26 - Physical Exam General: Alert, In no apparent distress, Oriented x3, Cooperative HEENT: Atraumatic, Normocephalic, PERRLA, Mucous membr. moist/pink, EOMI, Sclerae nonicteric Neck: Supple, 2+ carotid pulse no bruit, JVD not distended, No Thyromegaly, No LAD Respiratory: Diminished, Rhonchi/gurgles Cardiovascular: No edema, Normal pulses, Regular rate/rhythm, Normal S1 S2, No g allops, No rubs, No murmurs Capillary refill: <2 Seconds Gastrointestinal: Normal bowel sounds, Soft and benign, Non-distended, No ascites, No tenderness, No masses, No rebound, No guarding Musculoskeletal: No clubbing, No swelling, No contractures, No erythema, No tenderness, No warmth Integumentary: No rashes, No breakdown, No significant lesion, No tenderness/swelling, No erythema, No warmth, No cyanosis Neurological: Normal speech, Normal strength at 5/5 x4 extr, Normal tone, Sensation intact, Cranial nerves 3-12 intact, Normal affect Lymphatics: No axilla or inguinal lymphadenopathy - Studies Laboratory Data (last 24 hrs) 02/12/21 00:20: WBC 6.70 D, Hgb 14.0, Hct 41.5, Plt Count 163 02/12/21 00:20: Sodium 139, Potassium 4.0, BUN 15, Creatinine 1.04, Glucose 120 H, Magnesium 2.1, Total Bilirubin 0.3, AST 61 H, ALT 75, Alkaline Phosphatase 55, Lipase 265 <Cesar Baez - Last Filed: 02/12/21 03:18> Assessment and Plan - Problems (Diagnosis) (1) Pneumonia due to COVID-19 virus Current Visit: Yes Status: Acute - Plan pulm consulted, RT consulted daily room air sat, sats for home O2 continue O2 IV steroids, ivermectin, covid supplements DVT ppx daily CRP, ferritin Discharge Plan: Home Plan to discharge in: 48 Hours - Advance Directives Does patient have a Living Will: No Does patient have a Durable POA for Healthcare: No - Code Status/Comfort Care Code Status Assessed: Yes (full code) Critical Care: No Time Spent Managing Pts Care (In Minutes): 70 <Cesar Baez - Last Filed: 02/12/21 03:18> Date of Service: 02/12/21 Agree with findings as mentioned above. Patient remains hypoxic. Continue room to severe. Continue IV steroids. O2 for supportive care <Sean Cueva - Last Filed: 02/13/21 12:03>
[2021-02-12] MEDS ORDERED: MELATONIN 5 MG TABLET PO PRN (04:28)
[2021-02-12] MEDS ORDERED: ACETAMINOPHEN 500 MG TAB PO PRN (04:28)
[2021-02-12] MEDS ORDERED: MORPHINE 2 MG/ML SYR IV PRN (04:28)
[2021-02-12] MEDS ORDERED: ONDANSETRON 4 MG/2 ML VIAL IV PRN (04:28)
[2021-02-12 06:09] LABS: C-Reactive Protein 40.2 mg/L (<3.00); Ferritin 910.1 ng/mL (26-388)
[2021-02-12 06:11] LABS: Albumin 3.3 g/dL (3.4-5.0); Bilirubin Total 0.3 mg/dL (0.2-1.0); Magnesium 2.2 mg/dL (1.8-2.4); Phosphorus 3.1 mg/dL (2.5-4.9); Potassium 4.8 mmol/L (3.5-5.1); Protein, Total 7.2 g/dL (6.4-8.2); Thyroid Stimulating Hormone 0.485 uIU/mL (0.360-3.740)
[2021-02-12] MEDS: ZINC SULFATE 220 MG CAP PO SCH (08:10)
[2021-02-12] MEDS: ASPIRIN EC 81 MG TAB PO SCH (08:10)
[2021-02-12] MEDS: THIAMINE HCL 100 MG TABLET PO SCH (08:10)
[2021-02-12] MEDS: VITAMIN D 1000 UNIT TAB PO SCH (08:10)
[2021-02-12] MEDS: ASCORBIC ACID 500 MG TABLET PO SCH ×4 (08:10→20:11)
[2021-02-12] MEDS: FAMOTIDINE 20 MG TAB PO SCH ×2 (08:10→20:11)
[2021-02-12] MEDS: ENOXAPARIN 40 MG/0.4 ML SQ SCH (08:10)
[2021-02-12] MEDS: METHYLPREDNISOLONE 125 MG INJ IV SCH ×2 (08:11→20:11)
[2021-02-12] MEDS: IVERMECTIN 3 MG TABLET PO SCH (09:32)
--- NOTE | 2021-02-12 10:50 | P.CNS ---
Date of Consult: 02/12/21 Chief Complaint: covid pneumonia History of Present Illness: Patient is 35 years of age admitted with shortness of breath dyspnea on exertion recently diagnosed with coal weighed in February 03 think reports cough some diarrhea and doing well on 2 L of nasal cannula oxygen former smoker quit 6 months ago Allergies No Known Allergies Allergy (Unverified 02/12/21 03:46) Home Medications: NK [No Home Meds] 02/12/21 - Past Medical/Surgical History Diabetic: No - Family History Mother Medical History: Hypertension - Social History Alcohol use: Yes CD- Drugs: No Caffeine use: No Place of Residence: Home Review of Systems General: Weakness Respiratory: Shortness of Breath Physical Examination Temp Pulse Resp BP Pulse Ox 96.8 F 85 30 H 113/74 95 02/12/21 08:00 02/12/21 08:00 02/12/21 08:00 02/12/21 08:00 02/12/21 08:00 Laboratory Data (last 24 hrs) 02/12/21 00:20: WBC 6.70 D, Hgb 14.0, Hct 41.5, Plt Count 163 02/12/21 00:20: Sodium 139, Potassium 4.0, BUN 15, Creatinine 1.04, Glucose 120 H, Magnesium 2.1, Total Bilirubin 0.3, AST 61 H, ALT 75, Alkaline Phosphatase 55, Lipase 265 - Problems (1) Pneumonia due to COVID-19 virus Current Visit: Yes Status: Acute Plan: patient is 35 years of age admitted with roberts virus pneumonia is currently doing well room-air saturation is satisfactory plan to ambulate discharge on Decadron continue with present medication labs reviewed chest x-ray consistent with roberts virus pneumonia
--- NOTE | 2021-02-12 12:24 | RAD REPORT ---
EXAM DESCRIPTION: RAD - Chest Single View - 02/12/2021 12:29 am CLINICAL HISTORY: SOB Chest pain. COMPARISON: Chest Single View dated 02/10/2021; Chest Single View dated 03/21/2019 FINDINGS: Portable technique limits examination quality. Mild bilateral pulmonary opacities appear slightly worse on the left since 02/10/2021 study. The hear t is normal in size. No displaced fractures. IMPRESSION: Mild worsening in left lung aeration since comparative study.
[2021-02-12] MEDS: BENZONATATE 100 MG CAP PO PRN (12:57)
[2021-02-12] MEDS: HYDROCODONE/CHLORPHEN 5 ML/OSYR PO PRN (14:23)
[2021-02-13 05:42] LABS: ALT/SGPT 63 U/L (12-78); AST/SGOT 26 U/L (15-37); Albumin 2.8 g/dL (3.4-5.0); Alkaline Phosphatase 48 U/L (45-117); BUN Blood Urea Nitrogen 15 mg/dL (7-18); Bicarbonate 28 mmol/L (21-32); Bilirubin Total 0.3 mg/dL (0.2-1.0); Glucose Level 144 mg/dL (74-106); HDL Cholesterol 27 mg/dL (40-60); LDL Cholesterol, Calculated 88 (<130); Magnesium 2.3 mg/dL (1.8-2.4); Phosphorus 3.7 mg/dL (2.5-4.9); Potassium 4.2 mmol/L (3.5-5.1); Sodium Level 138 mmol/L (136-145)
[2021-02-13 06:23] VITALS: BMI 29.7
[2021-02-13] MEDS: THIAMINE HCL 100 MG TABLET PO SCH (08:00)
[2021-02-13] MEDS: VITAMIN D 1000 UNIT TAB PO SCH (08:00)
[2021-02-13] MEDS: METHYLPREDNISOLONE 125 MG INJ IV SCH ×2 (08:00→19:50)
[2021-02-13] MEDS: ASCORBIC ACID 500 MG TABLET PO SCH ×4 (08:01→19:50)
[2021-02-13] MEDS: ZINC SULFATE 220 MG CAP PO SCH (08:01)
[2021-02-13] MEDS: ENOXAPARIN 40 MG/0.4 ML SQ SCH (08:01)
[2021-02-13] MEDS: ASPIRIN EC 81 MG TAB PO SCH (08:01)
[2021-02-13] MEDS: FAMOTIDINE 20 MG TAB PO SCH ×2 (08:01→19:50)
[2021-02-13] MEDS: HYDROCODONE/CHLORPHEN 5 ML/OSYR PO PRN ×2 (08:03→17:32)
--- NOTE | 2021-02-13 12:04 | P.PN ---
Subjective Date of Service: 02/13/21 Subjective: No new changes, No C/O voiced, Improving Review of Systems 10-point ROS is otherwise unremarkable Physical Examination - Vital Signs Temperature: 100.1 F Blood Pressure: 136/79 Pulse: 90 Respirations: 26 Pulse Ox (%): 91 - Physical Exam General: Alert, In no apparent distress, Oriented x3 Respiratory: Diminished, Rhonchi/gurgles Cardiovascular: Regular rate/rhythm, Normal S1 S2 Gastrointestinal: Normal bowel sounds, No tenderness Musculoskeletal: No tenderness Integumentary: No rashes Neurological: Normal speech, Normal tone, Normal affect Lymphatics: No axilla or inguinal lymphadenopathy - Studies Medications List Reviewed: Yes Assessment & Plan - Problems (Diagnosis) (1) Pneumonia due to COVID-19 virus Current Visit: Yes Status: Acute - Plan 1. Continue with IV steroids 2. Monitor inflammatory markers 3. Repeat chest x-ray if symptoms are progressively worsening 4. O2 per protocol 5. Pulmonary consultation appreciated 6. Continue with albuterol inhaler therapy; also supportive care 7. Monitor LFTs 8. GI and DVT prophylaxis -Need to consider antiviral therapy as patient remains hypoxic. Await pulmonary recommendations as only select physicians are allowed to prescribe this at our hospital. Also needs to use his incentive spirometer and we can check room air oxygenation in the morning. Discharge Plan: Home Plan to discharge in: Greater than 2 days - Advance Directives Does patient have a Living Will: No Does patient have a Durable POA for Healthcare: No - Code Status/Comfort Care Code Status Assessed: Yes Code Status: Full Code Critical Care: No Time Spent Managing PTS Care (In Minutes): 35
[2021-02-13] MEDS: BENZONATATE 100 MG CAP PO PRN ×2 (13:24→22:53)
[2021-02-13] MEDS: ALBUTEROL 2.5 MG/3 ML NEB SOL NEB PRN (20:35)
[2021-02-14] MEDS: ALBUTEROL 2.5 MG/3 ML NEB SOL NEB PRN (02:30)
[2021-02-14] MEDS: HYDROCODONE/CHLORPHEN 5 ML/OSYR PO PRN (03:08)
[2021-02-14] MEDS: IVERMECTIN 3 MG TABLET PO SCH (06:31)
--- NOTE | 2021-02-14 07:41 | RAD REPORT ---
EXAM DESCRIPTION: Nikolay Single View02/14/2021 6:19 am CLINICAL HISTORY: Chest pain COMPARISON: February 13, 2021 FINDINGS: Overall no significant change in the bilateral pulmonary opacities. Heart is normal size IMPRESSION: No significant change in the bilateral pulmonary opacities probably pneumonia
[2021-02-14] MEDS: FAMOTIDINE 20 MG TAB PO SCH (07:54)
[2021-02-14] MEDS: THIAMINE HCL 100 MG TABLET PO SCH (07:54)
[2021-02-14] MEDS: METHYLPREDNISOLONE 125 MG INJ IV SCH (07:54)
[2021-02-14] MEDS: VITAMIN D 1000 UNIT TAB PO SCH (07:54)
[2021-02-14] MEDS: ZINC SULFATE 220 MG CAP PO SCH (07:54)
[2021-02-14] MEDS: ENOXAPARIN 40 MG/0.4 ML SQ SCH (07:55)
[2021-02-14] MEDS: ASCORBIC ACID 500 MG TABLET PO SCH (07:55)
[2021-02-14] MEDS: ASPIRIN EC 81 MG TAB PO SCH (07:55)
[2021-02-14 08:24] VITALS: BP 138/82; TEMP 98
--- NOTE | 2021-02-14 08:38 | P.DS ---
Admission Date: 02/12/21 Discharge Date: 02/14/21 Primary Care Provider: none Disposition: ROUTINE DISCHARGE Discharge Condition: GOOD Reason for Admission: covid pneumonia Consultations: Pulmonary-Dr. Chan Procedures: COVID: Positive CXR: COMPARISON: February 13, 2021 FINDINGS: Overall no significant change in the bilateral pulmonary opacities. Heart is normal size IMPRESSION: No significant change in the bilateral pulmonary opacities probably pneumonia Medical problem List: Dyspnea, hypoxia secondary to bilateral COVID 19 pneumonia Brief History of Present Illness: 35-year-old male presented to the emergency room with increasing shortness of breath. Patient was recently diagnosed with COVID-19. Patient was hypoxic requiring admission. Bilateral COVID-19 pneumonia noted. Hospital Course: Patient presented with dyspnea secondary to bilateral COVID-19 pneumonia with hypoxia. Patient had recently been diagnosed in late January. Patient required hospitalization. Patient improved with IV steroids and treatment. At discharge patient without significant shortness of breath or cough. Patient does not require any oxygen at discharge. Room air saturations within normal range. At discharge the patient will continue with prednisone 20 mg 1 pill twice daily for 7 days then 1 pill once daily for 7 days. Tessalon Perles 100 mg 3 times a day as needed for cough will be provided. Patient may continue with albuterol 2 p uffs 3 times a day as needed for shortness of breath. Patient should continue with aspirin 81 mg daily for at least 1 month for DVT prophylaxis. The patient will also continue with vitamin supplementation including vitamin C 500 mg 3 times a day, vitamin D 2000 units daily, thiamine 200 mg daily, and zinc 220 mg daily. Patient will need to continue with CDC guidelines on isolation for at least 10 days. Patient will continue with other recommendations including proning, incentive spirometer use, facemask use, social distancing and handwashing. Recommend to follow-up with pulmonology in 1 week to follow-up hospitalization. Pulmonology will make further recommendations as an outpatient. Patient also will establish care locally with a PCP to continue his care. Vital Signs/Physical Exam: Temp Pulse Resp BP Pulse Ox 98.0 F 86 25 H 138/82 92 02/14/21 08:00 02/14/21 08:00 02/14/21 08:00 02/14/21 08:00 02/14/21 08:00 General: Alert, In no apparent distress, Oriented x3, Cooperative HEENT: Atraumatic Neck: Supple Respiratory: Clear to auscultation bilaterally, Normal air movement Cardiovascular: Regular rate/rhythm Gastrointestinal: Normal bowel sounds, No tenderness, No masses, No rebound, No guarding Musculoskeletal: No erythema, No tenderness, No warmth Integumentary: No tenderness/swelling Neurological: Normal speech, Normal strength at 5/5 x4 extr, Normal tone, Normal affect Laboratory Data at Discharge: WBC 6.70 K/uL (4.3-10.9) D 02/12/21 00:20 Hgb 14.0 g/dL (13.6-17.9) 02/12/21 00:20 Hct 41.5 % (39.6-49.0) 02/12/21 00:20 Plt Count 163 K/uL (152-406) 02/12/21 00:20 Sodium 138 mmol/L (136-145) 02/13/21 04:47 Potassium 4.2 mmol/L (3.5-5.1) 02/13/21 04:47 BUN 15 mg/dL (7-18) 02/13/21 04:47 Creatinine 0.76 mg/dL (0.55-1.3) 02/13/21 04:47 Glucose 144 mg/dL (74-106) H 02/13/21 04:47 Phosphorus 3.7 mg/dL (2.5-4.9) 02/13/21 04:47 Magnesium 2.3 mg/dL (1.8-2.4) 02/13/21 04:47 Total Bilirubin 0.3 mg/dL (0.2-1.0) 02/13/21 04:47 AST 26 U/L (15-37) 02/13/21 04:47 ALT 63 U/L (12-78) 02/13/21 04:47 Alkaline Phosphatase 48 U/L (45-117) 02/13/21 04:47 Triglycerides 200 mg/dL (<150) H 02/13/21 04:47 Cholesterol 155 mg/dL (<200) 02/13/21 04:47 HDL Cholesterol 27 mg/dL (40-60) L 02/13/21 04:47 Cholesterol/HDL Ratio 5.74 02/13/21 04:47 Lipase 265 U/L (73-393) 02/12/21 00:20 Home Medications: Albuterol Inhaler [Ventolin Inhaler*] 2 puff IH TID PRN #1 hfa.aer.ad 02/14/21 Ascorbic Acid [Vitamin C*] 500 mg PO TID #90 tablet 02/14/21 Aspirin [Aspirin EC 81 MG] 81 mg PO DAILY #90 tablet. 02/14/21 Benzonatate [Tessalon Perle*] 100 mg PO TID PRN #15 cap 02/14/21 Cholecalciferol (Vitamin D3) [Vitamin D 1000 Iu Tab*] 2,000 unit PO DAILY #60 ta b 02/14/21 Thiamine HCl [Vitamin B-1*] 200 mg PO DAILY #60 tablet 02/14/21 Zinc Sulfate [Zinc Sulfate*] 220 mg PO DAILY #30 cap 02/14/21 predniSONE [Prednisone*] 20 mg PO SEECOM #21 tab 02/14/21 New Medications: Aspirin [Aspirin EC 81 MG] 81 mg PO DAILY #90 tablet. predniSONE [Prednisone*] 20 mg PO SEECOM #21 tab Benzonatate [Tessalon Perle*] 100 mg PO TID PRN #15 cap PRN Reason: Cough Albuterol Inhaler [Ventolin Inhaler*] 2 puff IH TID PRN #1 hfa.aer.ad PRN Reason: Shortness Of Breath Thiamine HCl [Vitamin B-1*] 200 mg PO DAILY #60 tablet Ascorbic Acid [Vitamin C*] 500 mg PO TID #90 tablet Cholecalciferol (Vitamin D3) [Vitamin D 1000 Iu Tab*] 2,000 unit PO DAILY #60 tab Zinc Sulfate [Zinc Sulfate*] 220 mg PO DAILY #30 cap Physician Discharge Instructions: Patient presented with dyspnea secondary to bilateral COVID-19 pneumonia with hypoxia. Patient had recently been diagnosed in late January. Patient required hospitalization. Patient improved with IV steroids and treatment. At discharge patient without significant shortness of breath or cough. Patient does not require any oxygen at discharge. Room air saturations within normal range. At discharge the patient will continue with prednisone 20 mg 1 pill twice daily for 7 days then 1 pill once daily for 7 days. Tessalon Perles 100 mg 3 times a day as needed for cough will be provided. Patient may continue with albuterol 2 puffs 3 times a day as needed for shortness of breath. Patient should continue with aspirin 81 mg daily for at least 1 month for DVT prophylaxis. The patient will also continue with vitamin supplementation including vitamin C 500 mg 3 times a day, vitamin D 2000 units daily, thiamine 200 mg daily, and zinc 220 mg daily. Patient will need to continue with CDC guidelines on isolation for at least 10 days. Patient will continue with other recommendations including proning, incentive spirometer use, facemask use, social distancing and h andwashing. Recommend to follow-up with pulmonology in 1 week to follow-up hospitalization. Pulmonology will make further recommendations as an outpatient. Patient also will establish care locally with a PCP to continue his care. Diet: Regular Activity: Ad roberto Followup: NONE,NONE [Primary Care Provider] - Time spent managing pt's care (in minutes): 55
[2021-02-14 08:52] VITALS: O2SAT 93
== END 2021-02-14 09:37 | disposition home or self-care (01) | DRG 177 ==
LOC: ER 23:28 → ERHOLD 02-12 02:32 → 3RD-ICU 02-12 02:56
PROVIDERS: ADMIT Hospitalist; ATTEND Family Medicine
DX: U07.1 COVID-19 (principal); J12.82 Pneumonia due to coronavirus disease 2019; R09.02 Hypoxemia; Z87.891 Personal history of nicotine dependence; Z79.52 Long term (current) use of systemic steroids; Z79.899 Other long term (current) drug therapy; Z79.82 Long term (current) use of aspirin
CPT/HCPCS: 36415; 71045; 80048; 80053; 80061; 80076; 82728; 83036; 83690; 83735; 83880; 84100; 84145; 84439; 84443; 85025; 86140; 87040; 94010; 94640; 94760; 96374; 96375; 99285; J0456; J1100; J1650; J2930; J7050

== ENCOUNTER 2022-02-25 10:52 | Inpatient (IN) | payer SELFPAY ==
--- OUTSIDE RECORDS SUMMARY | 2022-02-25 10:54 | XMS REPORT | Continuity of Care Document ---
:1985 Author Organization [facility] t Address [address] [phone] [id number] Care Team Providers Name Role Phone Lab, Fam Pob I Attending Clinician Unavailable Mary AQUINO Attending Clinician MARY Attending Clinician Unavailable Doctor Unassigned, Name Attending Clinician Unavailable Problems This patient has no known problems. Allergies, Adverse Reactions, Alerts Allergy Allergy Status Severity Reaction(s) Onset Inactive Treating Comm ents Source Name Type Date Date Clinician NO KNOWN Drug Active Univers [facility]ERGIE Class it[facility] of [facility] Social History Social Habit Start Date Stop Date Quantity Comments Source Exposure to Not sure [facility] SARS-CoV-2 (event) Medica l Branch Sex Assigned At [birth year] [facility] 00:00:00 00:00:00 [facility] Smoking Status Start Date Stop Date Source Unknown if ever smoked [facility] Medications This patient has no known medications. Procedures Procedure Date / Time Performed Performing Clinician Sour e ASSIGNMENT OF BENEFITS 2021-02-03 22:00:15 Doctor Unassigned, No [facility] Encounters Start End Encounter Admission Attending Care Care Encounter Source Date/Time Date/Time Type Type Clinicians Facility Department ID 2021-02-03 2021-02-03 Laboratory Lab, [facility] [id number] 17:01:56 17:21:56 Only Fam Pob I Health [id number] [place] [id number] Professio [phone] [address] 2021-02-03 2021-02-03 Laboratory Lab, Adc Fam Pob I [facility] [id number]. [id number] [facility] 17:01:56 17:21:56 Only Vitor Hernandez [id number] ity of [place] [id number] [place] as Professio [phone] [facility] [address] [facility] 2021-02-03 2021-02-03 Outpatient R MARY [facility] [id number] [facility] 17:00:00 17:00:00 [facility] of [facility] 2021-02-03 2021-02-03 Orders Doctor VITOR [id number] 00:00:00 00:00:00 Only Unassigned, EFE [id number] [place] [facility] [id number] 2021-02-03 2021-02-03 Orders Doctor VITOR [id number] [facility] 00:00:00 00:00:00 Only Unassigned, EFE [id number] ity of [place] [facility] [id number] [place] as [phone] [place] [address] Branch Results This patient has no known results.
[2022-02-25 11:33] LABS: Absolute Lymphocytes (CBC) 0.8 K/uL (0.7-4.9); Hematocrit 46.5 % (39.6-49.0); Lymphocytes % 4.9 % (15.3-44.8); MCV 86.9 fL (80-100); MPV 8.4 fL (7.6-11.3); RBC Red Blood Cell Count 5.36 M/uL (4.33-5.43)
[2022-02-25] MEDS ORDERED: NA CHLORIDE 0.9% 1,000 ML ONE (11:37)
[2022-02-25] MEDS ORDERED: ONDANSETRON 4 MG/2 ML VIAL ONE ×2 (11:37→15:59)
[2022-02-25] MEDS ORDERED: MORPHINE 4 MG/ML SYR ONE (11:37)
[2022-02-25 11:49] LABS: Albumin 4.3 g/dL (3.4-5.0); Bilirubin Total 0.6 mg/dL (0.2-1.0); Potassium 3.7 mmol/L (3.5-5.1); Protein, Total 7.6 g/dL (6.4-8.2)
[2022-02-25 12:03] LABS: Blood Morphology Comment NOT SEEN (NOT SEEN); Platelet Estimate ADEQ
--- NOTE | 2022-02-25 12:42 | RAD REPORT ---
EXAM DESCRIPTION: CTAbdomen Pelvis W Contrast - 02/25/2022 12:22 pm CLINICAL HISTORY: Abdominal pain. RLQ abdominal pain COMPARISON: <Comparisons> TECHNIQUE: Biphasic CT imaging of the abdomen and pelvis was performed with 100 ml non-ionic IV cont rast. All CT scans are performed using dose optimization technique as appropriate and may include automated exposure control or mA/KV adjustment according to patient size. FINDINGS: The lung bases are clear. The liver is diffusely fatty. The spleen, pancreas, adrenal glands and kidneys are within normal limi ts. No bowel obstruction, free air, free fluid or abscess. 13 mm dilated appendix in the right lower anh drant compatible with acute appendicitis. No evidence of significant lymphadenopathy. No suspicious bony findings. IMPRESSION: Acute appendicitis.
--- NOTE | 2022-02-25 13:02 | ER ---
Nurse's Notes [facility] Name: Erwin Tolentino Jr Age: 36 yrs Sex: Male : 1985 Arrival Date: 02/25/2022 Time: 10:54 Bed 16 Private MD: Diagnosis: Unspecified acute appendicitis Presentation: 02/25 11:02 Chief complaint: Patient states: "I woke up with really bad stomach pains and aa5 vomiting". Pt denies diarrhea. Coronavirus screen: vomiting. Ebola Screen: No symptoms or risks identified at this time. Initial Sepsis Screen: Does the patient meet any 2 criteria? No. Patient's initial sepsis screen is negative. Does the patient have a suspected source of infection? No. Patient's initial sepsis screen is negative. Risk Assessment: Do you want to hurt yourself or someone else? Patient reports no desire to harm self or others. Onset of symptoms was February 25, 2022. 11:02 Method Of Arrival: Ambulatory aa5 11:02 Acuity: BHAVIK 3 aa5 Triage Assessment: 11:40 General: Appears in no apparent distress. Behavior is calm, cooperative. jg9 Historical: - Allergies: 11:03 No Known Allergies; aa5 - Home Meds: 11:03 None [Active]; aa5 - PMHx: 11:03 None; aa5 - PSHx: 11:03 None; aa5 - Immunization history:: Adult Immunizations unknown. - Social history:: Smoking status: Patient denies any tobacco usage or history of. Screenin:40 Abuse screen: Denies threats or abuse. Denies injuries from another. Nutritional jg9 screening: No deficits noted. Tuberculosis screening: No symptoms or risk factors identified. Fall Risk None identified. Assessment: 11:38 Reassessment: No changes from previously documented assessment. Patient and/or family jg9 updated on plan of care and expected duration. Pain level reassessed. Patient is alert, oriented x 3, equal unlabored respirations, skin warm/dry/pink. Pain: Complains of pain in abdomen-right lower abd. GI: Bowel sounds present X 4 quads. Abd is soft X 4 quads Abdomen is tender to palpation in right lower quadrant and left lower quadrant. 12:30 Reassessment: Patient and/or family updated on plan of care and expected duration. Pain jg9 level reassessed. Patient is alert, oriented x 3, equal unlabored respirations, skin warm/dry/pink. Patient states symptoms have improved. 13:30 Reassessment: No changes from previously documented assessment. Patient and/or family jg9 updated on plan of care and expected duration. Pain level reassessed. Patient is alert, oriented x 3, equal unlabored respirations, skin warm/dry/pink. 14:30 Reassessment: No changes from previously documented assessment. Patient and/or family jg9 updated on plan of care and expected duration. Pain level reassessed. Patient is alert, oriented x 3, equal unlabored respirations, skin warm/dry/pink. 15:43 Reassessment: No changes from previously documented assessment. Patient and/or family jg9 updated on plan of care and expected duration. Pain level reassessed. Patient is alert, oriented x 3, equal unlabored respirations, skin warm/dry/pink. Vital Signs: 11:02 BP 156 / 88; Pulse 101; Resp 18 S; Temp 97.3(TE); Pulse Ox 100% on R/A; Weight 98.88 kg aa5 (R); Height 5 ft. 9 in. (175.26 cm) (R); 11:30 BP 156 / 96; Pulse 110; Resp 15 S; Pulse Ox 97% on 1.5 lpm NC; Pain 2/10; jg9 12:00 BP 125 / 68; Pulse 92; Resp 16 S; Pulse Ox 94% ; Pain 2/10; jg9 13:45 BP 126 / 97; Pulse 92; Resp 14 S; Pulse Ox 95% on R/A; jg9 14:45 BP 131 / 67; Pulse 90; Resp 14 S; Pulse Ox 97% on R/A; jg9 15:45 BP 127 / 79; Pulse 97; Resp 14 S; Pulse Ox 100% on R/A; jg9 11:02 Body Mass Index 32.19 (98.88 kg, 175.26 cm) aa5 ED Course: 10:54 Patient arrived in ED. mr 10:59 Shobha Lopez F[facility]-C [facility] kb 10:59 Sean Zapata MD is Attending Physician. kb 11:02 Arm band placed on. aa5 11:03 Triage completed. aa5 11:26 Bed in low position. Call light in reach. Side rails up X 1. Door closed. Noise mb7 minimized. Warm blanket given. 11:26 Inserted saline lock: 20 gauge in left forearm, using aseptic technique. Blood mb7 collected. 11:26 CBC with Diff Sent. mb7 11:26 CMP Sent. mb7 11: Lipase Sent. mb7 11:29 Chelita Ariza, RN is Primary Nurse. jg9 12:24 CT Abd/Pelvis - IV Contrast Only In Process Unspecified. EDMS 13:00 Shubham Carroll MD is Hospitalizing Provider. kb 15:45 No apparent distress. Resting quietly. Pt visited by mother, Friend, significant other. jg9 15:56 No provider procedures requiring assistance completed. jg9 15:57 Patient admitted, IV remains in place. jg9 Administered Medications: 11:35 Drug: morphine 4 mg Route: IVP; Infused Over: 4 mins; Site: left forearm; jg9 12:11 Follow up: Response: No adverse reaction; Pain is decreased; RASS: Alert and Calm (0) j9 11:38 Drug: NS 0.9% 1000 ml Route: IV; Rate: 1 bolus; Site: left forearm; jg9 12:11 Follow up: IV Status: Completed infusion; IV Intake: 1000ml j9 11:38 Drug: Zofran (Ondansetron) 4 mg Route: IVP; Infused Over: 2 mins; Site: left forearm; jg9 12:12 Follow up: Response: No adverse reaction j9 13:09 Drug: Flagyl (metroNIDAZOLE) 500 mg Volume: 100 ml; Route: IVPB; Rate: 200 ml/hr; jg9 Infused Over: 30 mins; Site: left forearm; 15:46 Follow up: IV Status: Completed infusion; IV Intake: 100ml j9 13:09 Drug: Rocephin (cefTRIAXone) 1 grams Route: IV; Rate: calculated rate; Site: left 9 forearm; 15:46 Follow up: IV Status: Completed infusion; IV Intake: 50ml jg9 Medication: 11:40 VIS not applicable for this client. jg9 Intake: 12:11 IV: 1000ml; Total: 1000ml. jg9 15:46 IV: 50ml; Total: 1050ml. jg9 15:46 IV: 100ml; Total: 1150ml. jg9 Outcome: 13:01 Decision to Hospitalize by Provider. 15:57 Admitted to OR accompanied by nurse, via wheelchair, with chart. jg9 15:57 Condition: stable 15:57 Patient left the ED. jg9 Signatures: Dispatcher [employer] EDMS Shobha Lopez, KACY MERCHANT MILLER-Lyndsay Weeks Audri, RN RN aa5 Lyndsay Peace Chelita Welch RN RN jg9 Corrections: (The following items were deleted from the chart) 11:04 11:02 Pulse 101bpm; Resp 18bpm; Spontaneous; Pulse Ox 100% RA; Temp 97.3F Temporal; aa5 aa5
--- NOTE | 2022-02-25 13:03 | EDPHYS ---
Physician Documentation [facility] Name: Erwin Tolentino Jr Age: 36 yrs Sex: Male : 1985 Arrival Date: 02/25/2022 Time: 10:54 Bed 16 Private MD: ED Physician Sena Zapata HPI: 02/25 12:37 This 36 yrs old Male presents to ER via Ambulatory with complaints of kb Abdominal Pain, Vomiting. 12:37 The patient presents with abdominal pain right lower quadrant. Onset: The kb symptoms/episode began/occurred this morning. The symptoms do not radiate. Associated signs and symptoms: Pertinent positives: nausea and vomiting, Pertinent negatives: diarrhea, fever. The symptoms are described as constant. Modifying factors: The symptoms are alleviated by nothing, the symptoms are aggravated by pressure. Severity of pain: At its worst the pain was moderate in the emergency department the pain is unchanged. The patient has not experienced similar symptoms in the past. The patient has not recently seen a physician. Pt reports he woke up with abd pain that felt more in the upper abdomen, then he vomited for about 2 hours. After that the pain was worse and in lower abd. . Historical: - Allergies: 11:03 No Known Allergies; aa5 - Home Meds: 11:03 None [Active]; aa5 - PMHx: 11:03 None; aa5 - PSHx: 11:03 None; aa5 - Immunization history:: Adult Immunizations unknown. - Social history:: Smoking status: Patient denies any tobacco usage or history of. ROS: 12:37 Constitutional: Negative for fever, chills, and weight loss. kb 12:37 Abdomen/GI: Positive for abdominal pain, nausea and vomiting. 12:37 All other systems are negative. Exam: 12:37 Constitutional: This is a well developed, well nourished patient who is awake, alert, kb and in no acute distress. Head/Face: Normocephalic, atraumatic. ENT: Moist Mucous membranes Cardiovascular: Regular rate and rhythm with a normal S1 and S2. No gallops, murmurs, or rubs. No pulse deficits. Respiratory: Respirations even and unlabored. No increased work of breathing. Talking in full sentences Skin: Warm, dry with normal turgor. Normal color. MS/ Extremity: Pulses equal, no cyanosis. Neurovascular intact. Full, normal range of motion. Neuro: Awake and alert, GCS 15, oriented to person, place, time, and situation. Moves all extremities. Normal gait. Psych: Awake, alert, with orientation to person, place and time. Behavior, mood, and affect are within normal limits. 12:37 Abdomen/GI: Inspection: abdomen appears normal, Bowel sounds: normal, Palpation: soft, in all quadrants, nontender, in the right upper quadrant, left upper quadrant and left lower quadrant, moderate abdominal tenderness, in the right lower quadrant. Vital Signs: 11:02 BP 156 / 88; Pulse 101; Resp 18 S; Temp 97.3(TE); Pulse Ox 100% on R/A; Weight 98.88 kg aa5 (R); Height 5 ft. 9 in. (175.26 cm) (R); 11:30 BP 156 / 96; Pulse 110; Resp 15 S; Pulse Ox 97% on 1.5 lpm NC; Pain 2/10; jg9 12:00 BP 125 / 68; Pulse 92; Resp 16 S; Pulse Ox 94% ; Pain 2/10; jg9 13:45 BP 126 / 97; Pulse 92; Resp 14 S; Pulse Ox 95% on R/A; jg9 14:45 BP 131 / 67; Pulse 90; Resp 14 S; Pulse Ox 97% on R/A; jg9 15:45 BP 127 / 79; Pulse 97; Resp 14 S; Pulse Ox 100% on R/A; jg9 11:02 Body Mass Index 32.19 (98.88 kg, 175.26 cm) aa5 MDM: 11:03 Patient medically screened. kb 12:36 Data reviewed: vital signs, nurses notes. Data interpreted: Pulse oximetry: on room air kb is 94 %. Interpretation: normal. 13:00 Counseling: I had a detailed discussion with the patient and/or guardian regarding: the kb historical points, exam findings, and any diagnostic results supporting the discharge/admit diagnosis, lab results, radiology results, the need for further work-up and treatment in the hospital. Physician consultation: Shubham Carroll MD was contacted at 13:00, regarding admission, to the medical/surgical unit. patient's condition, and will see patient in ED. 02/25 11:04 Order name: CBC with Diff; Complete Time: 12:04 kb 02/25 11:04 Order name: CMP; Complete Time: 11:52 kb 02/25 11:04 Order name: Lipase; Complete Time: 11:52 kb 02/25 11:04 Order name: CT Abd/Pelvis - IV Contrast Only; Complete Time: 12:43 kb 02/25 12:04 Order name: Manual Differential; Complete Time: 12:04 EDMS 02/25 12:44 Order name: COVID-19 SARS RT PCR (Document "Date of Onset" if Symptomatic); Complete ss Time: 14:35 02/25 11:04 Order name: IV Saline Lock; Complete Time: 11:26 kb 02/25 11:04 Order name: Labs collected and sent; Complete Time: 11:26 kb Administered Medications: 11:35 Drug: morphine 4 mg Route: IVP; Infused Over: 4 mins; Site: left forearm; jg9 12:11 Follow up: Response: No adverse reaction; Pain is decreased; RASS: Alert and Calm (0) 9 11:38 Drug: NS 0.9% 1000 ml Route: IV; Rate: 1 bolus; Site: left forearm; jg9 12:11 Follow up: IV Status: Completed infusion; IV Intake: 1000ml jg9 11:38 Drug: Zofran (Ondansetron) 4 mg Route: IVP; Infused Over: 2 mins; Site: left forearm; jg9 12:12 Follow up: Response: No adverse reaction jg9 13:09 Drug: Flagyl (metroNIDAZOLE) 500 mg Volume: 100 ml; Route: IVPB; Rate: 200 ml/hr; jg9 Infused Over: 30 mins; Site: left forearm; 15:46 Follow up: IV Status: Completed infusion; IV Intake: 100ml jg9 13:09 Drug: Rocephin (cefTRIAXone) 1 grams Route: IV; Rate: calculated rate; Site: left [facility] [place]; 15:46 Follow up: IV Status: Completed infusion; IV Intake: 50ml jg9 Disposition Summary: 02/25/22 13:01 Hospitalization Ordered Hospitalization Status: Observation kb Provider: Shubham Carroll Location: Telemetry/MedSur (observation) kb Condition: Stable kb Problem: new kb Symptoms: are unchanged kb Bed/Room Type: Standard Room Assignment: Diagnosis - Unspecified acute appendicitis kb Forms: - Medication Reconciliation Form kb - SBAR form kb Addendum: 03/05/2022 17:55 Co-signature as Attending Physician, Sean Zapata MD. m a2 Signatures: Dispatcher [employer] Shobha Still FNP-C DEONNA-Matilde Cortez RN RN aa5 Sean Zapata MD MD ma2 Chelita Ariza RN RN jg9
[2022-02-25] MEDS ORDERED: METRONIDAZOLE 500mg IVPB 500 MG/100 ML BAG IV ONE (13:05)
[2022-02-25] MEDS ORDERED: NA CHLORIDE 0.9% 50 ML ONE (13:05)
[2022-02-25] MEDS ORDERED: CEFTRIAXONE 1000 MG/VIAL ONE (13:05)
[2022-02-25] MEDS ORDERED: NA CHLORIDE 0.9% 100 ML ONE (13:05)
[2022-02-25] MEDS ORDERED: ONDANSETRON 4 MG/2 ML VIAL IV PRN (15:38)
[2022-02-25] MEDS ORDERED: LIDOCAINE 1% MPF 5 ML VIAL ONE (15:57)
[2022-02-25] MEDS ORDERED: propofoL 200 MG/20 ML VIAL IV ONE (15:57)
[2022-02-25] MEDS ORDERED: MIDAZOLAM HCL 2 MG/2 ML INJ ONE (15:57)
[2022-02-25] MEDS ORDERED: FENTANYL CITR 100 MCG/2 ML ONE (15:57)
[2022-02-25] MEDS ORDERED: GLYCOPYRROLATE 0.2 MG/ML SYR ONE (15:58)
[2022-02-25] MEDS ORDERED: ROCURONIUM 50 MG/5 ML VIAL IV ONE (15:58)
[2022-02-25] MEDS ORDERED: KETOROLAC 30 MG/ML INJ ONE (15:59)
[2022-02-25] MEDS ORDERED: MORPHINE 10 MG/ML VIAL ONE (15:59)
[2022-02-25] MEDS ORDERED: dexAMETHasone 10 MG/ML VIAL ONE (15:59)
[2022-02-25] MEDS ORDERED: Ringers Lactate 1,000 ML IV ONE (16:09)
[2022-02-25 16:15] VITALS: O2SAT 100
--- NOTE | 2022-02-25 16:18 | P.BOP ---
Preoperative diagnosis: Acute appendicitis Postoperative diagnosis: same Primary procedure: Laparoscopic appendectomy Estimated blood loss: <10cc Specimen: milagros Findings: as above Anesthesia: General Complications: None Transferred to: Recovery Room Condition: Good
[2022-02-25] MEDS: NA CHLORIDE 0.9% 1,000 ML IV SCH (17:55)
[2022-02-25] MEDS: CEFOXITIN 1 GM in NA CHLORIDE 0.9% 50 ML IVPB SCH (18:02)
[2022-02-25 18:24] VITALS: BMI 32.1
[2022-02-25] MEDS: HYDROCODONE/APAP 5/325 MG TAB PO PRN (19:56)
--- NOTE | 2022-02-25 20:15 | HP ---
Date of Admission: 02/25/2022 Diagnosis: Acute appendicitis. History Of Present Illness: This is the case of a 36-year-old patient male, who comes to us with abd ominal pain, started this morning, associated with nausea, vomiting. Came to the ER and diagnosed wi th acute appendicitis. He denies any trauma. Last time, he ate was yesterday was pizza. [facility] sick at [facility]. No recent traveling out of the country. Allergies: NONE. Medications: None. Past Medical History: None. Past Surgical History: Surgeries none. Social History: He does not smoke. He does not drink alcohol. Review of Systems: See H and P. Ten points otherwise unremarkable. Physical Examination: General: The patient is awake, alert. HEENT: Pupils are equal, reactive. Anicteric. Neck: Supple. Chest: Clear. Abdomen: Soft and depressible. Right lower quadrant tenderness with Rovsing sign positive and psoas signs positive. Rectal: Deferred. Extremities: Good capillary refill. Neuro: Cranial nerves 2 through 12 grossly within normal limits. Laboratory Data: Blood work shows WBC count of 17.2 with neutrophils of 91, hemoglobin of 16.1. Pot assium 3.7, creatinine is 1.1. CAT scan of the abdomen and pelvis shows acute appendicitis. Assessment: It is a 36-year-old patient with acute appendicitis. The benefits, alternatives, and ri sks of laparoscopic possible open appendectomy fully explained, which include, but not limited to inf ection, bleeding, damage to adjacent structures, anesthesia complication, IN, and even . He als o understands this may not relieve any symptoms. He might need more than one surgical intervention. He understood, signed a consent. The OR was emergently called. ANY/BI Voice ID: [id number]
--- NOTE | 2022-02-25 20:21 | OP ---
Date of Procedure: 02/25/2022 Surgeon: Shubham Carroll MD Preoperative Diagnosis: Acute appendicitis. Postoperative Diagnosis: Acute appendicitis. Procedure: Laparoscopic appendectomy. Anesthesia: General plus local. Complications: None. Findings: Acute appendicitis. Estimated Blood Loss: Less than 10 cc. Indication: This is the case of a 36-year-old patient, diagnosed with acute appendicitis. The benef its, alternatives, and risks of laparoscopic possible open appendectomy fully explained, which includ e, but not limited to infection, bleeding, damage to adjacent structures, anesthesia complication, VT , and even . He also understands this may not relieve any symptoms. He might need more than on e surgical intervention. He understood, signed a consent. Procedure In Detail: The patient was brought to the operating room, placed in supine position. Anes thesia was done without complication. Abdominal area was prepped and draped in the usual sterile fas hion. Marcaine 0.5% was injected for local anesthetic followed by sharp incision of the skin in the infraumbilical region. Incision was carried down to fascia, which was opened under direct vision. P eritoneum was encountered, opened under direct vision. Vicryl #1 placed inside the fascia. Maci t rocar was carefully introduced. Pneumoperitoneum was obtained. I placed 2 more trocars, 1 in the bravo prapubic, another 1 in the left lower quadrant, 5 mm each one of them under direct visualization. Th is allowed me to visualize the area of the appendix. A window was created in the base of the appendi x, transected that with an Endo-SUMIT 45 mm nonvascular and then the mesoappendix with an Endo SUMIT 45 m m vascular. Appendix was removed from abdominal cavity using EndoCatch through the umbilical incisio n. The area was inspected once again. No bowel leak. No bleeding. This is after irrigation and bravo ction. At that moment, I proceeded to remove the trocars under direct vision. Deflated pneumoperito neum. Closed the fascia with #1 Vicryl. Irrigated subcutaneous tissue, closed that with 3-0 chromic and skin with mary. Sponge count, instrument counts correct. The patient tolerated the procedur e well. The patient on his way to recovery in stable condition. ANY/BI Voice ID: [id number] Report ID: [id number]
[2022-02-25] MEDS: MORPHINE 4 MG/ML SYR IV PRN (22:31)
[2022-02-26] MEDS: NA CHLORIDE 0.9% 1,000 ML IV SCH ×4 (00:38→20:21)
[2022-02-26] MEDS: CEFOXITIN 1 GM in NA CHLORIDE 0.9% 50 ML IVPB SCH ×5 (00:38→23:55)
[2022-02-26] MEDS: MORPHINE 4 MG/ML SYR IV PRN ×2 (03:44→21:40)
[2022-02-26 04:18] LABS: Absolute Lymphocytes (CBC) 0.9 K/uL (0.7-4.9); Hematocrit 34.4 % (39.6-49.0); Lymphocytes % 9.1 % (15.3-44.8); MCV 87.5 fL (80-100); MPV 8.7 fL (7.6-11.3); RBC Red Blood Cell Count 3.93 M/uL (4.33-5.43)
[2022-02-26 04:32] LABS: Potassium 4.1 mmol/L (3.5-5.1)
[2022-02-26] MEDS: HYDROCODONE/APAP 5/325 MG TAB PO PRN ×3 (07:32→17:26)
[2022-02-26] MEDS ORDERED: SIMETHICONE 80 MG TAB PO PRN (11:31)
--- NOTE | 2022-02-26 17:22 | PN ---
Date of Progress Note: 02/26/2022 Diagnoses: Acute appendicitis, abdominal pain. Subjective: This is the case of a 36-year-old patient who comes to us with acute abdominal pain, und erwent appendectomy few hours ago. The patient is doing better but is still requiring IV pain medica tions. Still having some abdominal pain and has been able to complete his diet yet, although he noti aleah some improvement. He is ambulating. He feels bloated. Objective: Chest: Clear. Abdomen: Soft and depressible. Intact surgical site. Bowel sounds diminished. Extremities: Good capillary refill. Laboratory Data: WBC count came from 17 to 10. Hemoglobin of 12.1. Plan: We were asked him about possibility of going home versus staying overnight. After discussing the pros and cons with him, he decided to stay overnight since we have not been able to advance diet yet and was still requiring IV pain medications. He is improving. Vital signs are stable. We expec t him to be discharged tomorrow. ANY/BI Voice ID: [id number] Report ID: [id number]
[2022-02-27] MEDS: CEFOXITIN 1 GM in NA CHLORIDE 0.9% 50 ML IVPB SCH (05:25)
[2022-02-27] MEDS: NA CHLORIDE 0.9% 1,000 ML IV SCH ×2 (05:30→07:38)
[2022-02-27 08:05] VITALS: BP 138/72; TEMP 97
[2022-02-27] MEDS: HYDROCODONE/APAP 5/325 MG TAB PO PRN (08:19)
--- NOTE | 2022-02-27 09:32 | P.DS ---
Admission Date: 02/25/22 Discharge Date: 02/27/22 Disposition: ROUTINE DISCHARGE Discharge Condition: GOOD Brief History of Present Illness: See H&P Hospital Course: unremarkable Vital Signs/Physical Exam: Temp Pulse Resp BP Pulse Ox 97.0 F 93 H 16 138/72 97 02/27/22 08:00 02/27/22 08:00 02/27/22 09:15 02/27/22 08:00 02/27/22 09:15 General: Alert, In no apparent distress, Oriented x3, Cooperative HEENT: Normocephalic Neck: Supple Respiratory: Normal air movement Gastrointestinal: Normal bowel sounds, Soft and benign, No rebound, No guarding Integumentary: No rashes, No breakdown, No cyanosis Laboratory Data at Discharge: WBC 10.2 K/uL (4.3-10.9) D 02/26/22 03:18 Hgb 12.1 g/dL (13.6-17.9) L D 02/26/22 03:18 Hct 34.4 % (39.6-49.0) L D 02/26/22 03:18 Plt Count 249 K/uL (152-406) 02/26/22 03:18 Sodium 136 mmol/L (136-145) 02/26/22 03:18 Potassium 4.1 mmol/L (3.5-5.1) 02/26/22 03:18 BUN 13 mg/dL (7-18) 02/26/22 03:18 Creatinine 1.27 mg/dL (0.55-1.3) 02/26/22 03:18 Glucose 154 mg/dL (74-106) H 02/26/22 03:18 Total Bilirubin 0.6 mg/dL (0.2-1.0) 02/25/22 11:22 AST 15 U/L (15-37) 02/25/22 11:22 ALT 40 U/L (12-78) 02/25/22 11:22 Alkaline Phosphatase 85 U/L (45-117) 02/25/22 11:22 Lipase 97 U/L (73-393) 02/25/22 11:22 Home Medications: Amox/Clavulanate [Augmentin 875-125 Tab] 875 mg PO BID #12 tab 02/26/22 Ondansetron [Zofran] 4 mg PO Q6H PRN #10 tab 02/26/22 Tramadol HCl/Acetaminophen [Ultracet Tablet] 1 each PO Q4H PRN #20 tablet 02/26/22 New Medications: Amox/Clavulanate [Augmentin 875-125 Tab] 875 mg PO BID #12 tab Tramadol HCl/Acetaminophen [Ultracet Tablet] 1 each PO Q4H PRN #20 tablet PRN Reason: Pain Scale 5-7 (Moderate) Ondansetron [Zofran] 4 mg PO Q6H PRN #10 tab PRN Reason: Nausea / Vomiting Physician Discharge Instructions: May remove outer dressing and shower. Apply triple antibiotic ointment and bandaid to mary Diet: Regular Activity: No lifting more than 10 lbs Followup: Shubham Carroll MD [ACTIVE - CAN ADMIT] - 1 Week NONE,NONE [Primary Care Provider] -
== END 2022-02-27 10:15 | disposition home or self-care (01) | DRG 343 ==
LOC: ER 10:52 → ERHOLD 13:03 → 2ND 16:35 → OBSVTOIN 19:06
PROVIDERS: ADMIT Surgery; ATTEND Surgery
PROC: 0DTJ4ZZ Resection of Appendix, Percutaneous Endoscopic Approach (ICD-10-PCS; principal; 2022-02-25 16:30)
DX: K35.80 Unspecified acute appendicitis (principal); Z20.822 Contact with and (suspected) exposure to COVID-19
CPT/HCPCS: 36415; 74177; 80048; 80053; 83690; 85025; 88304; 94010; 96361; 96365; 96366; 96368; 96375; 99285; G0378; J0694; J1100; J2250; J2405; J2704; J3010; J3490; J7030; J7120; Q9967; U0003

== ENCOUNTER 2022-03-20 10:54 | Emergency (ER) | payer SELFPAY ==
[2022-03-20 12:25] LABS: Absolute Lymphocytes (CBC) 1.9 K/uL (0.7-4.9); Hematocrit 44.2 % (39.6-49.0); Lymphocytes % 44.2 % (15.3-44.8); MCV 88.1 fL (80-100); MPV 8.2 fL (7.6-11.3); RBC Red Blood Cell Count 5.02 M/uL (4.33-5.43)
[2022-03-20 12:39] LABS: Albumin 4.3 g/dL (3.4-5.0); Bilirubin Total 0.4 mg/dL (0.2-1.0); Potassium 3.9 mmol/L (3.5-5.1); Protein, Total 7.9 g/dL (6.4-8.2)
--- NOTE | 2022-03-20 13:30 | RAD REPORT ---
EXAM DESCRIPTION: CT - Abdomen Pelvis W Contrast - 03/20/2022 1:07 pm CLINICAL HISTORY: abdominal pain, appendectomy 1 month earlier COMPARISON: Abdomen Pelvis W Contrast dated 02/25/2022 TECHNIQUE: Biphasic, helical CT imaging of the abdomen and pelvis was performed following 100 ml non -ionic IV contrast. No oral contrast administered. All CT scans are performed using dose optimization technique as appropriate and may include automated exposure control or mA/KV adjustment according to patient size. FINDINGS: No suspicious findings in the lung bases. The liver, spleen, and pancreas show no suspicious findings. Liver attenuation is borderline to mildl y fatty infiltrated. Gallbladder and biliary tree are also without suspicious finding. Symmetric renal function is seen with no hydronephrosis or suspicious renal mass. No pyelonephritis o r acute parenchymal process. Bladder is mostly contracted which limits assessment. No bladder calculi seen. Phleboliths is seen along the left side of the pelvic floor. No adrenal abnormalities. No gastric dilatation or gastric wall thickening. No dilated large or small bowel. Appendectomy clips are seen at the tip of the cecum. No acute bowel finding identifiable. There is trace amount of flui d in stranding seen along the pelvic floor. This is still within range of normal for recent surgery. There is no evidence for abscess or surgery related complication. No free air or pneumatosis. No he rnia, mass or bulky lymphadenopathy. No suspicious bony findings. IMPRESSION: Contrast enhanced CT abdomen and pelvis showing no acute or emergent finding. Trace amounts of fluid and stranding along the pelvic floor are within range of normal for recent erick sly.
--- NOTE | 2022-03-20 15:47 | EDPHYS ---
Physician Documentation [facility] Name: Erwin Welsh Age: 36 yrs Sex: Male : 1985 Arrival Date: 03/20/2022 Time: 10:56 Bed 23 Private MD: ED Physician Lucas Tracey HPI: 03/20 12:20 This 36 yrs old Male presents to ER via Ambulatory with complaints of lower m abdominal pain. 12:20 The patient presents with abdominal pain. Onset: The symptoms/episode began/occurred jmm acutely, last night. The symptoms do not radiate. Associated signs and symptoms: Pertinent negatives: fever. This is a 46 year old male with no chronic medical conditions that presents to the ED with complaints of lower abdominal pain beginning last night. Patient states the pain was intense last night but lasted for approx 5 min. Patient now complains of a dull ache, pressure to the right lower quadrant. Historical: - Allergies: 11:48 No Known Allergies; ap3 - Home Meds: 11:48 None [Active]; ap3 - PMHx: 11:48 None; ap3 - PSHx: 11:48 Appendectomy; ap3 - Immunization history:: Client reports having NOT received the Covid vaccine. - Social history:: Smoking status: Patient denies any tobacco usage or history of. ROS: 12:20 Constitutional: Negative for fever, chills, and weight loss, Cardiovascular: Negative jmm for chest pain, palpitations, and edema, Respiratory: Negative for shortness of breath, cough, wheezing, and pleuritic chest pain. 12:20 Abdomen/GI: Positive for abdominal pain. 12:20 All other systems are negative. Exam: 12:20 Constitutional: This is a well developed, well nourished patient who is awake, alert, jmm and in no acute distress. Head/Face: atraumatic. Eyes: EOMI, no conjunctival erythema appreciated ENT: Moist Mucus Membranes Neck: Trachea midline, Supple Chest/axilla: Normal chest wall appearance and motion. Cardiovascular: Regular rate and rhythm. No edema appreciated Respiratory: Normal respirations, no respiratory distress appreciated 12:20 Skin: General appearance color normal MS/ Extremity: Moves all extremities, no obvious deformities appreciated, no edema noted to the lower extremities Neuro: Awake and alert Psych: Behavior is normal, Mood is normal, Patient is cooperative and pleasant 12:20 Abdomen/GI: Inspection: abdomen appears normal, Bowel sounds: normal, Palpation: soft, mild abdominal tenderness, in the right lower quadrant. Vital Signs: 11:45 BP 124 / 86; Pulse 80; Resp 17; Temp 98.2; Pulse Ox 100% ; Weight 99.34 kg; Height 5 ap3 ft. 9 in. (175.26 cm); Pain 3/10; 15:26 BP 126 / 88; Pulse 61; Resp 16; Pulse Ox 100% on R/A; jb4 11:45 Body Mass Index 32.34 (99.34 kg, 175.26 cm) ap3 MDM: 11:24 Patient medically screened. [facility] 14:02 Data reviewed: vital signs, nurses notes. Counseling: I had a detailed discussion with [facility] the patient and/or guardian regarding: the historical points, exam findings, and any diagnostic results supporting the discharge/admit diagnosis, lab results, radiology results, the need for outpatient follow up, to return to the emergency department if symptoms worsen or persist or if there are any questions or concerns that arise at home. 15:40 ED course: Patient is alert and non toxic in appearance in the ED. No signs of resp [facility] distress. Patient advised to follow up with gen surgery and otherwise given strict return precautions. patient understood and agrees with the plan of care. . 03/20 11:24 Order name: CBC with Diff; Complete Time: 12:26 [facility] 03/20 11:24 Order name: CMP; Complete Time: 12:40 [facility] 03/20 11:24 Order name: Lipase; Complete Time: 12:40 [facility] 03/20 11:24 Order name: IV Saline Lock; Complete Time: 13:56 [facility] 03/20 11:24 Order name: Labs collected and sent; Complete Time: 13:56 [facility] 03/20 11:24 Order name: CT Abd/Pelvis - IV Contrast Only; Complete Time: 13:30 [facility] Administered Medications: No medications were administered Disposition: 18:22 Co-signature as Attending Physician, Lucas Tracey MD. rn Disposition Summary: 03/20/22 15:46 Discharge Ordered Location: Home [facility] Condition: Stable [facility] Diagnosis - Lower abdominal pain, unspecified [facility] Followup: [facility] - With: Private Physician - When: 2 - 3 days - Reason: Recheck today's complaints, Continuance of care, Re-evaluation by your physician Discharge Instructions: - Discharge Summary Sheet jonathan - Abdominal Pain, Adult jonathan Forms: - Medication Reconciliation Form jonathan - Thank You Letter jonathan - Antibiotic Education jonathan - Prescription Opioid Use jonathan Prescriptions: - dicyclomine 20 mg Oral Tablet - take 1 tablet by ORAL route 4 times per day; 20 tablet; Refills: 0, Product [facility] Selection Permitted Signatures: Dispatcher [employer] EDJeremiah Long PA PA jmm Nieto, Roman, MD MD rn Olga Lidia Milton RN RN ap3
--- NOTE | 2022-03-20 15:47 | ER ---
Nurse's Notes [facility] Name: Erwin Welsh Age: 36 yrs Sex: Male : 1985 Arrival Date: 03/20/2022 Time: 10:56 Bed 23 Private MD: Diagnosis: Lower abdominal pain, unspecified Presentation: 03/20 11:45 Chief complaint: Patient states: he had his appendix removed with Dr. Carroll last ap3 month, and has been recovering nicely sine. However patient reports severe right lower quadrant pain last night. Patient reports the pain lasted approx 5 minutes, but then came back at about a 3/10 on a pain scale and continues at this time. Coronavirus screen: At this time, the client does not indicate any symptoms associated with coronavirus-19. Ebola Screen: No symptoms or risks identified at this time. Initial Sepsis Screen: Does the patient meet any 2 criteria? No. Patient's initial sepsis screen is negative. Does the patient have a suspected source of infection? No. Patient's initial sepsis screen is negative. Risk Assessment: Do you want to hurt yourself or someone else? Patient reports no desire to harm self or others. Onset of symptoms was March 19, 2022. 11:45 Method Of Arrival: Ambulatory ap3 11:45 Acuity: BHAVIK 3 ap3 Triage Assessment: 11:48 General: Appears in no apparent distress. Behavior is calm, cooperative. Pain: ap3 Complains of pain in right lower quadrant Pain currently is 3 out of 10 on a pain scale. Neuro: Level of Consciousness is awake, alert, obeys commands, Oriented to person, place, time, situation, Gait is steady, Speech is normal. Cardiovascular: Patient's skin is warm and dry. Respiratory: Airway is patent Respiratory effort is even, unlabored. GI: Patient currently denies diarrhea, nausea. Historical: - Allergies: 11:48 No Known Allergies; ap3 - Home Meds: 11:48 None [Active]; ap3 - PMHx: 11:48 None; ap3 - PSHx: 11:48 Appendectomy; ap3 - Immunization history:: Client reports having NOT received the Covid vaccine. - Social history:: Smoking status: Patient denies any tobacco usage or history of. Screenin:49 Abuse screen: Denies threats or abuse. Nutritional screening: No deficits noted. ap3 Tuberculosis screening: No symptoms or risk factors identified. 16:13 Fall Risk None identified. jb4 Assessment: 15:26 General: Appears in no apparent distress. comfortable, Behavior is calm, cooperative. jb4 Pain: Complains of pain in right lower quadrant Pain does not radiate. Pain currently is 3 out of 10 on a pain scale. Neuro: Level of Consciousness is awake, alert, obeys commands, Oriented to person, place, time, situation. Cardiovascular: Patient's skin is warm and dry. Respiratory: Airway is patent Respiratory effort is even, unlabored, Respiratory pattern is regular, symmetrical. Derm: Skin is intact, Skin is pink, warm \T\ dry. Musculoskeletal: Circulation, motion, and sensation intact. Range of motion: intact in all extremities. 16:13 Reassessment: Patient appears in no apparent distress at this time. Patient and/or jb4 family updated on plan of care and expected duration. Pain level reassessed. Patient is alert, oriented x 3, equal unlabored respirations, skin warm/dry/pink. Patient states feeling better. Vital Signs: 11:45 BP 124 / 86; Pulse 80; Resp 17; Temp 98.2; Pulse Ox 100% ; Weight 99.34 kg; Height 5 ap3 ft. 9 in. (175.26 cm); Pain 3/10; 15:26 BP 126 / 88; Pulse 61; Resp 16; Pulse Ox 100% on R/A; jb4 11:45 Body Mass Index 32.34 (99.34 kg, 175.26 cm) ap3 ED Course: 10:56 Patient arrived in ED. mr 10:57 Jeremiah Koehler PA is PHCP. jmm 10:57 Lucas Tracey MD is Attending Physician. jmm 11:48 Triage completed. ap3 11:49 Arm band placed on right wrist. ap3 13:02 Inserted saline lock: 20 gauge in left antecubital area, using aseptic technique. Blood oj collected. 13:08 CT Abd/Pelvis - IV Contrast Only In Process Unspecified. EDMS 15:12 Valente Ashby, AUBREE is Primary Nurse. jb4 16:13 Patient has correct armband on for positive identification. Bed in low position. Call jb4 light in reach. Side rails up X 1. 16:13 No provider procedures requiring assistance completed. IV discontinued, intact, jb4 bleeding controlled, No redness/swelling at site. Pressure dressing applied. Administered Medications: No medications were administered Medication: 16:13 VIS not applicable for this client. jb4 Outcome: 15:46 Discharge ordered by . jonathan 16:13 Discharged to home ambulatory. jb4 16:13 Condition: stable 16:13 Discharge instructions given to patient, Instructed on discharge instructions, follow up and referral plans. medication usage, Demonstrated understanding of instructions, follow-up care, medications, Prescriptions given X 1. 16:14 Patient left the ED. jb4 Signatures: Dispatcher [employer] EDMS Jeremiah Koehler PA PA jmm Rivera, Mary mr Valente Ashby, RN RN jb4 Olga Lidia Milton RN RN ap3 Orquidea Maldonado
[2022-03-20 16:24] VITALS: TEMP 98.2; O2SAT 100
[2022-03-20 16:26] VITALS: BP 126/88
== END 2022-03-20 16:14 | disposition home or self-care (01) ==
LOC: ER 10:54
DX: R10.30 Lower abdominal pain, unspecified (principal)
CPT/HCPCS: 36415; 74177; 80053; 83690; 85025; 99284; Q9967